=== PATIENT | male | born 1970 | race Caucasian/White ===

== ENCOUNTER 2018-04-18 22:57 | Observation (INO) | payer OTHER ==
--- NOTE | 2018-04-18 23:41 | ED ---
Abdominal Pain HPI - General Chief Complaint: Abdominal Pain Stated Complaint: Abd Pain Time Seen by Provider: 04/18/18 23:03 Source: patient Mode of arrival: ambulatory Limitations: no limitations - History of Present Illness Initial Comments: This patient is a 47-year-old man presenting to be evaluated for abdominal pain. He states that the symptoms came on around 3 AM. He states that initially it was diffuse throughout the abdomen and cramping in nature. States it was similar to previous episode of poisoning so he was not too concerned. He spent the day drinking plenty of fluid to try and flush it out. He states that since that time he has had some sharp stabbing episodes in the right lower quadrant. He states the pain is been moderate intensity. He has noted that the pain is better if he just remains still and is a little bit worse if he moves. No associated symptoms. MD Complaint: abdominal pain Onset/Timin -: hour(s) Location: diffuse Migration to: RLQ Severity: moderate Quality: cramping, stabbing Consistency: colicky Improves With: rest Worsens With: movement Associated Symptoms: nausea - Related Data Home Medications Medication Instructions Recorded Confirmed Levothyroxine Sodium [Synthroid] 100 mcg PO DIRECTED 04/18/18 04/18/18 Nugenix 1 cap PO DAILY 04/18/18 04/18/18 Allergies Allergy/AdvReac Type Severity Reaction Status Date / Time No Known Allergies Allergy Verified 04/18/18 23:20 Review of Systems ROS Statement: Those systems with pertinent positive or pertinent negative responses have been documented in the HPI. ROS Other: All systems not noted in ROS Statement are negative. Constitutional: Denies: fever, chills Respiratory: Denies: cough, dyspnea Cardiovascular: Denies: chest pain, palpitations, edema Gastrointestinal: Reports: abdominal pain. Denies: nausea, vomiting, diarrhea, constipation Genitourinary: Reports: testicular pain. Denies: dysuria, frequency, hematuria , testicular mass Skin: Denies: rash Neurological: Denies: headache, weakness, numbness Past Medical History Past Medical History: Thyroid Disorder History of Any Multi-Drug Resistant Organisms: None Reported Past Surgical History: No Surgical Hx Reported Past Psychological History: No Psychological Hx Reported Smoking Status: Former smoker Past Alcohol Use History: Rare Past Drug Use History: None Reported General Exam Limitations: no limitations General appearance: alert, in no apparent distress Head exam: Present: atraumatic, normocephalic Eye exam: Present: normal appearance. Absent: scleral icterus, conjunctival injection ENT exam: Present: normal oropharynx Neck exam: Present: normal inspection Respiratory exam: Present: normal lung sounds bilaterally. Absent: respiratory distress, wheezes, rales, rhonchi, stridor Cardiovascular Exam: Present: regular rate (Rate 96 at my exam), normal rhythm, normal heart sounds. Absent: systolic murmur, diastolic murmur, rubs, gallop GI/Abdominal exam: Present: soft, tenderness (Right lower quadrant), normal bowel sounds. Absent: distended, guarding, rebound, rigid, mass, pulsatile mass , hernia exam: Present: normal inspection, vertical testicular lie, circumcision. Absent: testicular tenderness, urethral discharge, scrotal swelling Extremities exam: Present: normal inspection, normal capillary refill. Absent: pedal edema, calf tenderness Back exam: Present: normal inspection. Absent: CVA tenderness (R), CVA tenderness (L) Neurological exam: Present: alert, normal gait Skin exam: Present: warm, dry, intact, normal color. Absent: rash Course Vital Signs 04/18/18 04/19/18 23:05 01:06 Temperature 99.0 F Pulse Rate 109 H 90 Respiratory 19 20 Rate Blood Pressure 141/64 138/68 O2 Sat by Pulse 93 L 97 Oximetry Medical Decision Making - Lab Data Result diagrams: 04/18/18 23:31 04/18/18 23:31 Lab Results 04/18/18 04/18/18 04/19/18 Range/Units 23:31 23:31 00:12 WBC 13.4 H (3.8-10.6) k/uL RBC 5.61 (4.30-5.90) m/uL Hgb 15.3 (13.0-17.5) gm/dL Hct 46.4 (39.0-53.0) % MCV 82.7 (80.0-100.0) fL MCH 27.2 (25.0-35.0) pg MCHC 32.9 (31.0-37.0) g/dL RDW 13.6 (11.5-15.5) % Plt Count 220 (150-450) k/uL Neutrophils % 69 % Lymphocytes % 20 % Monocytes % 7 % Eosinophils % 3 % Basophils % 0 % Neutrophils # 9.2 H (1.3-7.7) k/uL Lymphocytes # 2.7 (1.0-4.8) k/uL Monocytes # 1.0 (0-1.0) k/uL Eosinophils # 0.3 (0-0.7) k/uL Basophils # 0.1 (0-0.2) k/uL Sodium 140 (137-145) mmol/L Potassium 4.0 (3.5-5.1) mmol/L Chloride 104 (98-107) mmol/L Carbon Dioxide 27 (22-30) mmol/L Anion Gap 9 mmol/L BUN 15 (9-20) mg/dL Creatinine 0.83 (0.66-1.25) mg/dL Est GFR (CKD-EPI)AfAm >90 (>60 ml/min/1.73 sqM) Est GFR (CKD-EPI)NonAf >90 (>60 ml/min/1.73 sqM) Glucose 129 H (74-99) mg/dL Calcium 9.3 (8.4-10.2) mg/dL Total Bilirubin 1.7 H (0.2-1.3) mg/dL AST 23 (17-59) U/L ALT 38 (21-72) U/L Alkaline Phosphatase 68 (38-126) U/L Total Protein 7.5 (6.3-8.2) g/dL Albumin 4.0 (3.5-5.0) g/dL Amylase 35 (30-110) U/L Lipase 36 (23-300) U/L Urine Color Yellow Urine Appearance Clear (Clear) Urine pH 7.0 (5.0-8.0) Ur Specific [place] 1.022 (1.001-1.035) Urine Protein Trace H (Negative) Urine Glucose (UA) Negative (Negative) Urine Ketones Negative (Negative) Urine Blood Trace H (Negative) Urine Nitrite Negative (Negative) Urine Bilirubin Negative (Negative) Urine Urobilinogen 8.0 (<2.0) mg/dL Ur Leukocyte Esterase Negative (Negative) Urine RBC 2 (0-5) /hpf Urine WBC 1 (0-5) /hpf Ur Squamous Epith Cells <1 (0-4) /hpf Urine Mucus Moderate H (None) /hpf Disposition Clinical Impression: Abdominal pain, Appendicitis, acute Disposition: ADMITTED IP TO THIS HOSP Condition: Good Referrals: Savage Rich MD [Primary Care Provider] - 1-2 days
[2018-04-18 23:47] LABS: Basophils # (A) 0.1 k/uL (0-0.2); Basophils % (A) 0 %; Eosinophils # (A) 0.3 k/uL (0-0.7); Eosinophils % (A) 3 %; HCT 46.4 % (39.0-53.0); HGB 15.3 gm/dL (13.0-17.5); Lymphocytes # (A) 2.7 k/uL (1.0-4.8); Lymphocytes % (A) 20 %; MCH 27.2 pg (25.0-35.0); MCHC 32.9 g/dL (31.0-37.0); MCV 82.7 fL (80.0-100.0); Mean Platelet Volume 7.7; Monocytes % (A) 7 %; Neutrophils # (A) 9.2 k/uL (1.3-7.7); Neutrophils % (A) 69 %; Platelet Count 220 k/uL (150-450); RBC 5.61 m/uL (4.30-5.90); RDW 13.6 % (11.5-15.5); WBC 13.4 k/uL (3.8-10.6)
[2018-04-18 23:57] LABS: ALT 38 U/L (21-72); AST 23 U/L (17-59); Alkaline Phosphatase 68 U/L (38-126); Amylase 35 U/L (30-110); Anion Gap 9 mmol/L; Blood Urea Nitrogen 15 mg/dL (9-20); Calcium 9.3 mg/dL (8.4-10.2); Carbon Dioxide 27 mmol/L (22-30); Chloride 104 mmol/L (98-107); Glucose 129 mg/dL (74-99); Lipase 36 U/L (23-300); Sodium 140 mmol/L (137-145); Total Bilirubin 1.7 mg/dL (0.2-1.3); Total Protein 7.5 g/dL (6.3-8.2)
--- NOTE | 2018-04-19 00:05 | CT ---
EXAMINATION TYPE: CT abdomen pelvis wo con DATE OF EXAM: 04/18/2018 COMPARISON: None HISTORY: RLQ PAIN CT DLP: 2077 mGycm Automated exposure control for dose reduction was used. TECHNIQUE: Helical acquisition of images was performed from the lung bases through the pelvis. FINDINGS: Lung bases are clear. There is no pleural effusion. Heart size is normal. There is no pericardial eff usion. There is diffuse fatty infiltration of the liver. The bile ducts are not dilated. There is no focal l iver defect. Spleen appears normal. There is no pancreatic mass. Gallbladder appears normal. There is no adrenal mass. The kidneys have normal size and contour. There is no hydronephrosis. Urete rs are not dilated. There is no retroperitoneal adenopathy. Bladder distends smoothly. There is no in guinal hernia. There is no free fluid in the pelvis. There is fat stranding in the right lower quadrant. There is thickened appendix with surrounding infl ammatory changes. There is small appendicolith. Appendix measures 1.6 cm in diameter. There is no sujatha e fluid in the pelvis. There is no ascites. There is no mesenteric edema or adenopathy. There is L5 s pondylolysis with minimal first-degree L5-S1 spondylolisthesis. IMPRESSION: THICKENED APPENDIX WITH SURROUNDING INFLAMMATORY CHANGES RELATED TO ACUTE APPENDICITIS. NO ABSCESS. A PPENDICOLITH. L5 SPONDYLOLYSIS WITH L5-S1 MILD SPONDYLOLISTHESIS. FATTY INFILTRATION OF THE LIVER.
[2018-04-19 01:29] LABS: Appearance,Urine Clear (Clear); Bilirubin,Urine Negative (Negative); Blood,Urine Trace (Negative); Color,Urine Yellow; Glucose,Urine (UA) Negative (Negative); Ketones,Urine Negative (Negative); Leukocyte Esterase,Urine Negative (Negative); Mucus,Urine Moderate /hpf; Nitrite,Urine Negative (Negative); Protein,Urine Trace (Negative); RBC,Urine 2 /hpf (0-5); Specific Gravity,Urine 1.022 (1.001-1.035); Squamous Epithelial Cell,Urine <1 /hpf (0-4); WBC,Urine 1 /hpf (0-5)
[2018-04-19] MEDS ORDERED: PIPERACILLIN-TAZOBACTAM 3.375 GM in SODIUM CHLORIDE 0.9% 100 ML IVPB STA (01:29)
[2018-04-19] MEDS ORDERED: NALOXONE 0.4 MG/ML 1 ML VIAL IV PRN (01:35)
[2018-04-19] MEDS ORDERED: LORazepam 2 MG/ML INJ IV PRN (01:35)
[2018-04-19] MEDS ORDERED: MORPHINE SULFATE 4 MG/ML SYRINGE IV PRN (01:35)
[2018-04-19] MEDS ORDERED: ONDANSETRON 4 MG/2 ML VIAL IVP PRN (01:35)
[2018-04-19] MEDS: SODIUM CHLORIDE 0.9% 1,000 ML IV SCH ×5 (01:56→21:26)
[2018-04-19 02:16] VITALS: RESP 18
[2018-04-19 02:28] VITALS: BMI 48.7
[2018-04-19] MEDS: LEVOTHYROXINE 100 MCG TAB PO SCH (05:41)
--- NOTE | 2018-04-19 08:36 | P.GSHP ---
History of Present Illness H&P Date: 04/19/18 Chief Complaint: Right upper quadrant abdominal pain 47-year-old male who presented to the emergency room with a chief complaint of developing right upper quadrant abdominal pain is a nausea sensation. Patient stated he had a similar episode when he had poisoning. He thought that the abdominal pain was contributed to food poisoning tried to drink plenty of water to flush it out. He stated it did not help. He noted that with any movement it caused increased pain in the right upper quadrant. Stated if he just laid still the pain was not as intense. Patient stated he became concerned and came into the emergency room because the pain would not go away. Patient has no significant past surgical history. In the emergency room a computed tomography scan of the abdomen pelvis indicated acute appendicitis no abscess. Subsequently the patient has been admitted to the services of the attending. Currently states the pain medication has been effective for pain control. Currently labs this morning are pending White count on admission 13.4 total bilirubin 1.7 AST and ALT not elevated amylase 35 lipase 36. - Review of Systems Comment: Essentially unremarkable except as mentioned in the present illness Past Medical History Past Medical History: Sleep Apnea/CPAP/BIPAP, Thyroid Disorder History of Any Multi-Drug Resistant Organisms: None Reported Past Surgical History: No Surgical Hx Reported Additional Past Surgical History / Comment(s): umbilical hernia repair as infant Past Anesthesia/Blood Transfusion Reactions: No Reported Reaction Past Psychological History: No Psychological Hx Reported Smoking Status: Former smoker Past Alcohol Use History: Rare Past Drug Use History: None Reported - Past Family History Father Family Medical History: Diabetes Mellitus Medications and Allergies Home Medications Medication Instructions Recorded Confirmed Type Levothyroxine Sodium [Synthroid] 100 mcg PO DAILY 04/18/18 04/19/18 History Nugenix 1 cap PO DAILY 04/18/18 04/18/18 History Allergies Allergy/AdvReac Type Severity Reaction Status Date / Time No Known Allergies Allergy Verified 04/18/18 23:20 Surgical - Exam Vital Signs Temp Pulse Resp BP Pulse Ox 99.0 F 109 H 19 141/64 93 L 04/18/18 23:05 04/18/18 23:05 04/18/18 23:05 04/18/18 23:05 04/18/18 23:05 GENERAL APPEARANCE: 47-year-old male patient is alert, oriented, in no acute distress. States pain medication effective for pain control decrease pain right upper quadrant VITAL SIGNS: Reviewed HEENT: Head is normocephalic and atraumatic. Pupils are equal and reactive. The nares are patent. Oropharynx is clear without lesions. NECK: Supple without lymphadenopathy. Traches midline. HEART: S1, S2. Regular rate and rhythm. Denying chest pain LUNGS: No crackles or wheezes are heard. Adequate air movement ABDOMEN: Soft, positive tenderness to the right lower quadrant nondistended with good bowel sounds. No peritoneal signs. No palpable organomegaly or masses. EXTREMITIES: Normal skin color and turgor. No cyanosis, rash, ulceration, clubbing or edema. Radial pedal pulses are 2/4 bilaterally. NEUROLOGICAL: No focal deficits. Strength and sensation are grossly intact. Results - Labs 04/18/18 23:31 04/18/18 23:31 Abnormal Lab Results - Last 24 Hours (Table) 04/18/18 04/18/18 1218 Range/Units 23:31 23:31 00:12 WBC 13.4 H (3.8-10.6) k/uL Neutrophils # 9.2 H (1.3-7.7) k/uL Glucose 129 H (74-99) mg/dL Total Bilirubin 1.7 H (0.2-1.3) mg/dL Urine Protein Trace H (Negative) Urine Blood Trace H (Negative) Urine Mucus Moderate H (None) /hpf Diabetes panel 04/18/18 Range/Units 23:31 Sodium 140 (137-145) mmol/L Potassium 4.0 (3.5-5.1) mmol/L Chloride 104 (98-107) mmol/L Carbon Dioxide 27 (22-30) mmol/L BUN 15 (9-20) mg/dL Creatinine 0.83 (0.66-1.25) mg/dL Glucose 129 H (74-99) mg/dL Calcium 9.3 (8.4-10.2) mg/dL AST 23 (17-59) U/L ALT 38 (21-72) U/L Alkaline Phosphatase 68 (38-126) U/L Total Protein 7.5 (6.3-8.2) g/dL Albumin 4.0 (3.5-5.0) g/dL Calcium panel 04/18/18 Range/Units 23:31 Calcium 9.3 (8.4-10.2) mg/dL Albumin 4.0 (3.5-5.0) g/dL Pituitary panel 04/18/18 Range/Units 23:31 Sodium 140 (137-145) mmol/L Potassium 4.0 (3.5-5.1) mmol/L Chloride 104 (98-107) mmol/L Carbon Dioxide 27 (22-30) mmol/L BUN 15 (9-20) mg/dL Creatinine 0.83 (0.66-1.25) mg/dL Glucose 129 H (74-99) mg/dL Calcium 9.3 (8.4-10.2) mg/dL Adrenal panel 04/18/18 Range/Units 23:31 Sodium 140 (137-145) mmol/L Potassium 4.0 (3.5-5.1) mmol/L Chloride 104 (98-107) mmol/L Carbon Dioxide 27 (22-30) mmol/L BUN 15 (9-20) mg/dL Creatinine 0.83 (0.66-1.25) mg/dL Glucose 129 H (74-99) mg/dL Calcium 9.3 (8.4-10.2) mg/dL Total Bilirubin 1.7 H (0.2-1.3) mg/dL AST 23 (17-59) U/L ALT 38 (21-72) U/L Alkaline Phosphatase 68 (38-126) U/L Total Protein 7.5 (6.3-8.2) g/dL Albumin 4.0 (3.5-5.0) g/dL Assessment and Plan Assessment: Impression Present on admission right lower quadrant abdominal pain with a nausea sensation suspect due to acute appendicitis Present on admission leukocytosis suspect due to acute appendicitis CAT scan of the abdomen pelvis suggestive of acute appendicitis History of hypothyroid on supplement Morbid obesity BMI 48 Plan Keep nothing by mouth scheduled for a lap cholecystectomy today by Dr. Fox pain control IV Zosyn as ordered IV fluid for hydration DVT and GI prophylaxis Further recommendations pending The above impression and plan of care have been discussed and directed by signing physician. Skyla Celeste nurse practitioner acting as scribe for signing physician.
[2018-04-19] MEDS: PANTOPRAZOLE 40 MG/10 ML VIAL IVP SCH (09:01)
[2018-04-19] MEDS: HEPARIN SODIUM,PORCINE 5,000 UNIT/ML 1 ML VIAL SQ SCH ×3 (09:01→23:12)
[2018-04-19] MEDS: PIPERACILLIN-TAZOBACTAM 3.375 GM in SODIUM CHLORIDE 0.9% 100 ML IVPB SCH ×2 (11:24→17:09)
--- NOTE | 2018-04-19 12:56 | P.HPADDEND ---
H&P Addendum H&P Addendum Date: 04/19/18 emphysematous of surgery described. We'll proceed with robotic appendectomy given patient's body habitus and BMI almost 50
[2018-04-19] MEDS ORDERED: SUCCINYLCHOLINE CHLORIDE 100 MG/5 ML SYR IV ONE (18:46)
[2018-04-19] MEDS ORDERED: MIDAZOLAM 2 MG/2 ML VIAL ONE (18:46)
[2018-04-19] MEDS ORDERED: IV FLUID CONTINUATION 100 ML IV ONE (18:46)
[2018-04-19] MEDS ORDERED: PROPOFOL 10 MG/ML 20 ML VIAL IV ONE (18:46)
[2018-04-19] MEDS ORDERED: NEOSTIGMINE 1 MG/ML 10 ML VIAL ONE (18:46)
[2018-04-19] MEDS ORDERED: ROCURONIUM BROMIDE 10 MG/ML 10 ML VIAL IV ONE (18:46)
[2018-04-19] MEDS ORDERED: LIDOCAINE 1% INJ 10MG/ML (20 ML MDV) ONE (18:46)
[2018-04-19] MEDS ORDERED: fentaNYL (PF) 50 MCG/ML 2 ML AMP ONE (18:46)
[2018-04-19] MEDS ORDERED: GLYCOPYRROLATE 0.2 MG/ML 2 ML VIAL ONE (18:46)
[2018-04-19] MEDS ORDERED: KETOROLAC 30 MG/ML 1 ML VIAL ONE (18:46)
[2018-04-19] MEDS ORDERED: BUPIVACAIN-EPI 0.5%-1:200,000 30 ML VIAL SQ ONE (19:44)
[2018-04-19] MEDS ORDERED: LACTATED RINGERS 1,000 ML IV ONE (20:01)
[2018-04-19] MEDS ORDERED: METOCLOPRAMIDE 5 MG/ML 2 ML VIAL IVP PRN (20:55)
--- NOTE | 2018-04-19 20:55 | P.OP ---
Date of Procedure: 04/19/18 Preoperative Diagnosis: Acute appendicitis, morbid obesity, BMI 48.8 Postoperative Diagnosis: Retrocecal appendicitis with periappendicitis without rupture Procedure(s) Performed: Robotic appendectomy Anesthesia: GETA, local Surgeon: Elenita Fox Estimated Blood Loss (ml): 50 Pathology: other (Appendix) Condition: stable Disposition: floor Operative Findings: Retrocecal appendicitis with periappendicitis adding moderate complexity to the case including body habitus BMI 48.8
[2018-04-20] MEDS: PIPERACILLIN-TAZOBACTAM 3.375 GM in SODIUM CHLORIDE 0.9% 100 ML IVPB SCH ×2 (01:52→09:42)
[2018-04-20] MEDS: SODIUM CHLORIDE 0.9% 1,000 ML IV SCH (05:20)
[2018-04-20] MEDS: HYDROcodone/APAP 5-325MG 1 EACH TAB PO PRN ×2 (05:27→11:53)
[2018-04-20] MEDS: LEVOTHYROXINE 100 MCG TAB PO SCH (05:27)
[2018-04-20 08:09] VITALS: BP 118/77; PULSE 87; TEMP 98.4
[2018-04-20 08:37] LABS: Basophils # (A) 0.1 k/uL (0-0.2); Basophils % (A) 1 %; Eosinophils # (A) 0.2 k/uL (0-0.7); Eosinophils % (A) 2 %; HCT 44.1 % (39.0-53.0); HGB 13.6 gm/dL (13.0-17.5); Lymphocytes # (A) 2.3 k/uL (1.0-4.8); Lymphocytes % (A) 24 %; MCH 26.6 pg (25.0-35.0); MCHC 30.9 g/dL (31.0-37.0); MCV 86.2 fL (80.0-100.0); Mean Platelet Volume 7.6; Monocytes # (A) 0.6 k/uL (0-1.0); Monocytes % (A) 7 %; Neutrophils # (A) 6.4 k/uL (1.3-7.7); Neutrophils % (A) 66 %; Platelet Count 220 k/uL (150-450); RBC 5.11 m/uL (4.30-5.90); RDW 13.8 % (11.5-15.5); WBC 9.7 k/uL (3.8-10.6)
[2018-04-20] MEDS: HEPARIN SODIUM,PORCINE 5,000 UNIT/ML 1 ML VIAL SQ SCH (09:44)
[2018-04-20] MEDS: PANTOPRAZOLE 40 MG/10 ML VIAL IVP SCH (09:45)
--- NOTE | 2018-04-20 09:53 | P.DS ---
Providers Date of admission: 04/19/18 01:35 Expected date of discharge: 04/20/18 Attending physician: Elenita Fox [facility] Course: 47-year-old male presented to the emergency room with a chief complaint of developing right upper quadrant abdominal pain with a nausea sensation. Patient states he noted that with movement there was increased pain involving the right upper quadrant. Came into the emergency room to be evaluated for the above-mentioned symptoms. CAT scan of the abdomen pelvis indicated acute appendicitis no abscess. Liver enzymes were normal. White count on admission 13.4. On April 19 the patient underwent robotic appendectomy for retrocecal appendicitis with periappendicitis without rupture. The day of discharge patient was up ambulatory in the room. Abdomen soft surgical tenderness appropriate in surgical dressings dry tolerating a diet no stool afebrile white count down to 9.7. Patient was felt to be appropriate to be discharged home. Impression discharge diagnosis Present on admission right upper quadrant abdominal pain suspect due to acute appendicitis CAT scan of the abdomen pelvis indicated acute appendicitis Postop April 19 robotic appendectomy for acute appendicitis Retrocecal appendicitis with periappendicitis without rupture Morbid obesity BMI 48.8 The above impression and plan of care have been discussed and directed by signing physician. Skyla Celeste nurse practitioner acting as scribe for signing physician. Patient Condition at Discharge: Good Plan - Discharge Summary New Discharge Prescriptions: New Amoxic-Pot Clav 875-125Mg [Augmentin 875-125] 1 tab PO Q12HR #20 tablet HYDROcodone/APAP 5-325MG [[place] 5-325] 1 tab PO Q6HR PRN 3 Days #12 tab PRN Reason: Mild Pain No Action Nugenix 1 cap PO DAILY Levothyroxine Sodium [Synthroid] 100 mcg PO DAILY Discharge Medication List Levothyroxine Sodium [Synthroid] 100 mcg PO DAILY 04/18/18 [History] Nugenix 1 cap PO DAILY 04/18/18 [History] Amoxic-Pot Clav 875-125Mg [Augmentin 875-125] 1 tab PO Q12HR #20 tablet [Rx] HYDROcodone/APAP 5-325MG [[place] 5-325] 1 tab PO Q6HR PRN 3 Days #12 tab [Rx] Follow up Appointment(s)/Referral(s): Savage Rich MD [Primary Care Provider] - 1-2 days Elenita Fox MD [STAFF PHYSICIAN] - 04/23/18 Activity/Diet/Wound Care/Special Instructions: No tub bath for six weeks. Shower daily. No soaking No lifting over 10 pounds for the next 2 weeks. . Do not remove surgical dressings will be evaluated in the outpatient setting May return to work after seen in outpatient postop visit May use ice packs to surgical site. No driving while taking narcotic for pain. [id number]-[id number] stool softeners as needed when necessary first constipation Discharge Disposition: HOME SELF-CARE
== END 2018-04-20 14:03 | disposition home or self-care (01) ==
LOC: EC 22:57 → 1SOBS 04-19 01:35
PROVIDERS: ADMIT Surgery Plastic and Reconstructive Surgery; ATTEND Surgery Plastic and Reconstructive Surgery
DX: K35.30 Acute appendicitis with localized peritonitis, without perforation or gangrene (principal); E03.9 Hypothyroidism, unspecified; G47.30 Sleep apnea, unspecified; Z99.89 Dependence on other enabling machines and devices; E66.01 Morbid (severe) obesity due to excess calories; Z68.42 Body mass index [BMI] 45.0-49.9, adult; Z79.890 Hormone replacement therapy; Z87.891 Personal history of nicotine dependence; Z83.3 Family history of diabetes mellitus
CPT/HCPCS: 44970; S2900; 36415; 74176; 80053; 81001; 82150; 83690; 85025; 88304; 96365; 96366; 99285

== ENCOUNTER 2020-08-17 10:49 | Inpatient (IN) | payer OTHER ==
--- NOTE | 2020-08-17 11:41 | XR ---
EXAMINATION TYPE: XR chest 2V DATE OF EXAM: 08/17/2020 COMPARISON: NONE HISTORY: Shortness of breath TECHNIQUE: Frontal and lateral views of the chest are obtained. FINDINGS: Scattered airspace infiltrates are seen bilaterally. Correlate for Covid 19 pneumonia. No evidence for pneumothorax. No pleural effusion. The cardiac silhouette size is within normal limits. The osseous structures are grossly intact. IMPRESSION: 1. Scattered airspace infiltrates are seen bilaterally. Correlate for Covid 19 pneumonia.
--- NOTE | 2020-08-17 13:39 | ED ---
SOB HPI - General Chief Complaint: Shortness of Breath Stated Complaint: Covid+, bodyaches, SOB Time Seen by Provider: 08/17/20 13:30 Source: patient Mode of arrival: ambulatory Limitations: no limitations - History of Present Illness Initial Comments: 50-year-old male presenting to the emergency department with a chief complaint shortness of breath. Patient was diagnosed with Covid 5 days ago. States he has developed increase in symptoms. He reports increased shortness of breath but denies any chest pain. Does report chills at home but never actually obtained a temperature to measure for fever. He does report decreased appetite and oral intake. Denies any nausea vomiting or diarrhea. Also reports generalized myalgias and fatigue. Reports a nonproductive cough but denies any hemoptysis. - Related Data Home Medications Medication Instructions Recorded Confirmed Levothyroxine Sodium [Synthroid] 100 mcg PO DAILY 04/18/18 08/17/20 D-Methorphan/PE/Acetaminophen 2 cap PO Q12H PRN 08/17/20 08/17/20 [Vicks Dayquil Liquicaps] Dm/Acetaminophen/Doxylamine [Vicks 2 cap PO Q12H PRN 08/17/20 08/17/20 Nyquil Liquicaps] Furosemide [Lasix] 20 mg PO DAILY 08/17/20 08/17/20 Potassium Chloride ER [K-Dur 20] 20 meq PO DAILY 08/17/20 08/17/20 Allergies Allergy/AdvReac Type Severity Reaction Status Date / Time No Known Allergies Allergy Verified 08/17/20 14:32 Review of Systems ROS Statement: Those systems with pertinent positive or pertinent negative responses have been documented in the HPI. ROS Other: All systems not noted in ROS Statement are negative. Past Medical History Past Medical History: Sleep Apnea/CPAP/BIPAP, Thyroid Disorder History of Any Multi-Drug Resistant Organisms: None Reported Past Surgical History: Hernia Repair Additional Past Surgical History / Comment(s): umbilical hernia repair as Past Anesthesia/Blood Transfusion Reactions: No Reported Reaction Past Psychological History: No Psychological Hx Reported Smoking Status: Never smoker Past Alcohol Use History: Rare Past Drug Use History: None Reported - Past Family History Father Family Medical History: Diabetes Mellitus General Exam Limitations: no limitations General appearance: alert, in no apparent distress, obese Head exam: Present: atraumatic, normocephalic, normal inspection Eye exam: Present: normal appearance, PERRL, EOMI Pupils: Present: normal accommodation ENT exam: Present: normal exam, normal oropharynx, mucous membranes moist Neck exam: Present: normal inspection, full ROM. Absent: tenderness Respiratory exam: Present: normal lung sounds bilaterally. Absent: respiratory distress Cardiovascular Exam: Present: regular rate, normal rhythm, normal heart sounds GI/Abdominal exam: Present: soft. Absent: distended, tenderness, guarding, rebound Extremities exam: Present: normal inspection, normal capillary refill. Absent: full ROM, tenderness, pedal edema, joint swelling Back exam: Present: normal inspection, full ROM. Absent: tenderness, CVA tenderness (R), CVA tenderness (L) Neurological exam: Present: alert, oriented X3, normal gait Psychiatric exam: Present: normal affect, normal mood Skin exam: Present: warm, dry, intact, normal color Course Vital Signs 08/17/20 08/17/20 08/17/20 10:50 13:45 13:47 Temperature 98.7 F Pulse Rate 94 Respiratory 18 Rate Blood Pressure 129/75 O2 Sat by Pulse 90 L 81 L 97 Oximetry Medical Decision Making - Medical Decision Making 50-year-old male presents to the emergency department with chief complaint of shortness of breath. On physical examination, patient does not appear to be significant respiratory distress, however he is hypoxic with oxygenation of 81% on room air. Patient was started on 4 L nasal cannula. X-ray suggesting covert pneumonia. Patient will be started 6 mg of Decadron. Laboratory work pending. Patient does not qualify for monoclonal antibody. I spoke to Dr. Koch who will admit for further medical management. Case discussed with Pulmonary consult - Lab Data Result diagrams: 08/17/20 13:57 Lab Results 08/17/20 08/17/20 08/17/20 Range/Units 13:57 13:57 13:57 WBC 5.6 (3.8-10.6) k/uL RBC 5.69 (4.30-5.90) m/uL Hgb 15.8 (13.0-17.5) gm/dL Hct 46.2 (39.0-53.0) % MCV 81.3 (80.0-100.0) fL MCH 27.7 (25.0-35.0) pg MCHC 34.1 (31.0-37.0) g/dL RDW 13.9 (11.5-15.5) % Plt Count 172 (150-450) k/uL MPV 8.3 Neutrophils % 68 % Lymphocytes % 21 % Monocytes % 8 % Eosinophils % 1 % Basophils % 1 % Neutrophils # 3.8 (1.3-7.7) k/uL Lymphocytes # 1.2 (1.0-4.8) k/uL Monocytes # 0.4 (0-1.0) k/uL Eosinophils # 0.0 (0-0.7) k/uL Basophils # 0.1 (0-0.2) k/uL PT 10.8 (9.0-12.0) sec INR 1.0 (<1.2) APTT 25.6 (22.0-30.0) sec D-Dimer 0.82 H (<0.60) mg/L FEU Plasma Lactic Acid Chris 1.2 (0.7-2.0) mmol/L Disposition Clinical Impression: Pneumonia due to COVID-19 virus Disposition: ADMITTED IP TO THIS HOSP Condition: Good Is patient prescribed a controlled substance at d/c from ED?: No Referrals: Savage Rich MD [Primary Care Provider] - 1-2 days Time of Disposition: 13:48
[2020-08-17] MEDS ORDERED: dexAMETHasone 2 MG TAB PO STA (13:48)
[2020-08-17 14:18] LABS: Basophils # (A) 0.1 k/uL (0-0.2); Basophils % (A) 1 %; Eosinophils % (A) 1 %; HCT 46.2 % (39.0-53.0); HGB 15.8 gm/dL (13.0-17.5); Lymphocytes # (A) 1.2 k/uL (1.0-4.8); Lymphocytes % (A) 21 %; MCH 27.7 pg (25.0-35.0); MCHC 34.1 g/dL (31.0-37.0); MCV 81.3 fL (80.0-100.0); Mean Platelet Volume 8.3; Monocytes # (A) 0.4 k/uL (0-1.0); Monocytes % (A) 8 %; Neutrophils # (A) 3.8 k/uL (1.3-7.7); Neutrophils % (A) 68 %; Platelet Count 172 k/uL (150-450); RBC 5.69 m/uL (4.30-5.90); RDW 13.9 % (11.5-15.5); WBC 5.6 k/uL (3.8-10.6)
[2020-08-17 14:31] LABS: Partial Thromboplastin Time 25.6 sec (22.0-30.0); Prothrombin Time 10.8 sec (9.0-12.0)
[2020-08-17 14:34] LABS: D-Dimer 0.82 mg/L FEU (<0.60)
[2020-08-17 14:38] LABS: ALT 38 U/L (4-49); AST 65 U/L (17-59); African American GFR (CKD) >90 (>60 ml/min/1.73 sqM); Albumin 3.7 g/dL (3.5-5.0); Alkaline Phosphatase 72 U/L (38-126); Anion Gap 7 mmol/L; Blood Urea Nitrogen 10 mg/dL (9-20); Calcium 8.1 mg/dL (8.4-10.2); Carbon Dioxide 33 mmol/L (22-30); Chloride 95 mmol/L (98-107); Glucose 100 mg/dL (74-99); LDH 1125 U/L (313-618); Magnesium 1.9 mg/dL (1.6-2.3); Non-African American GFR(CKD) >90 (>60 ml/min/1.73 sqM); Potassium 3.8 mmol/L (3.5-5.1); Sodium 135 mmol/L (137-145); Total Bilirubin 1.1 mg/dL (0.2-1.3); Total Protein 7.1 g/dL (6.3-8.2)
[2020-08-17 14:49] LABS: C Reactive Protein 187.9 mg/L (<10.0)
--- NOTE | 2020-08-17 15:21 | CT ---
EXAMINATION TYPE: CT chest angio for PE DATE OF EXAM: 08/17/2020 COMPARISON: HISTORY: Shortness of breath and cough for [address] DLP: 1407.2 mGycm CONTRAST: CT chest with contrast and 3D reconstruction with MIP imaging is performed with IV Contrast, patient injected with 100 mL of Isovue 370. Contrast-enhanced CT of the chest was performed through the course of the pulmonary arteries with adebayo g and mediastinal window settings submitted. 3D reconstruction with MIP imaging was also performed. PULMONARY ARTERIES: The pulmonary arteries and their major tributaries are patent. I do not see veena dence for sizable filling defect to suggest pulmonary embolic process. LUNGS: Bilateral airspace and groundglass infiltrates seen throughout both lung daly. No evidence f or atelectasis. No pulmonary nodule or mass is detected. No pleural effusion. MEDIASTINUM: Thoracic aorta is of normal caliber,however, evaluation is limited given timing of the contrast bolus. If there is concern for thoracic aortic pathology consider NOBLE. Correlate clinicall y . The heart is not enlarged. No evidence for mediastinal mass. No mediastinal lymph nodes greater than 1cm. HILAR STRUCTURES: No evidence for mass. No hilar lymph nodes greater than 1 cm. UPPER ABDOMEN: No significant abnormality is seen. IMPRESSION: 1. No evidence for Pulmonary embolism at this time. 2.Bilateral airspace and groundglass infiltrates seen throughout both lung daly.
[2020-08-17] MEDS ORDERED: ACETAMINOPHEN TAB 325 MG TAB PO STA (16:12)
[2020-08-17] MEDS ORDERED: NALOXONE 0.4 MG/ML 1 ML VIAL IV PRN (16:24)
[2020-08-17] MEDS ORDERED: ACETAMINOPHEN TAB 325 MG TAB PO PRN (16:24)
[2020-08-17] MEDS ORDERED: LORazepam 2 MG/ML INJ IV PRN (16:24)
[2020-08-17] MEDS: SODIUM CHLORIDE 0.9% 1,000 ML IV SCH (16:30)
[2020-08-17] MEDS: ENOXAPARIN 40 MG/0.4 ML SYRINGE SQ SCH (21:02)
--- NOTE | 2020-08-17 21:21 | P.HPIM ---
History of Present Illness H&P Date: 08/17/20 Chief Complaint: Short of breath History of presenting complaint: This is a pleasant 50-year-old patient of Dr. Rich. Chronic stable medical conditions include hypothyroid, chronic lower extremity edema, morbid obesity, obstructive sleep apnea. He does not use a CPAP. Patient tested positive for COVID 1970s ago. 9 days prior to that patient having symptoms that included body ache, fever, chills, headache altered sense of smell. Base was present. Patient has been short of breath. Getting slightly worse. Patient's cough became worse. Appetite had gone down. Decided to come in. Pulse ox in the ER dropped down to 81%. 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 Physical examination: VITAL SIGNS: 98.7, 94, 26, 129 with 75, 81% on room air GENERAL: BMI 52.8, sitting at the edge of the bed, short of breath. EYES: Pupils equal. Conjunctiva normal. HEENT: External appearance of nose and ears normal, oral cavity grossly normal. NECK: JVD not raised; masses not palpable. HEART: First and second heart sounds are normal; mild edema. LUNGS: Respiratory rate increased, diminished breath sounds some crackles, not able to speak in full sentences. ABDOMEN: Soft, nontender, liver spleen not palpable, no masses palpable. PSYCH: Alert and oriented x3; mood and affect slightly anxiousl. NEUROLOGICAL: Cranial nerves grossly intact; no facial asymmetry, power and sensation grossly intact. LYMPHATICS: No lymph nodes palpable in the axilla and neck INVESTIGATIONS, reviewed in the clinical context: WBC 5.6 hemoglobin 15.8 platelets 172 d-dimer 0.82 potassium 3.8 creatinine 0.69 AST 65 ALT [address] chest angiogram for PE: Negative for PE. Bilateral groundglass infiltrates Chest x-ray film personally reviewed by me-bilateral infiltrates Assessment and plan: -Bilateral COVID 19 pneumonia/pneumonitis. Severe Patient started on IV Decadron, subcu Lovenox. Vitamin C, vitamin D, Pepcid, zinc. Pulmonary and ID consulted -Morbid obesity. Weight loss measures as well as outpatient follow-up with PCP -Acute severe hypoxic respiratory failure secondary to COVID 19 Supplement oxygen. Follow pulse ox -Hypothyroid Continue with Synthroid Pulmonary and ID consulted. Follow d-dimer and CRP. Care was discussed with the patient. Given the complexity and severity of patient's condition expect the patient to be in the hospital at least for 2 overnights Past Medical History Past Medical History: Sleep Apnea/CPAP/BIPAP, Thyroid Disorder History of Any Multi-Drug Resistant Organisms: None Reported Past Surgical History: Hernia Repair Additional Past Surgical History / Comment(s): umbilical hernia repair as Past Anesthesia/Blood Transfusion Reactions: No Reported Reaction Past Psychological History: No Psychological Hx Reported Smoking Status: Never smoker Past Alcohol Use History: Rare Past Drug Use History: None Reported - Past Family History Father Family Medical History: Diabetes Mellitus Medications and Allergies Home Medications Medication Instructions Recorded Confirmed Type Levothyroxine Sodium [Synthroid] 100 mcg PO DAILY 04/18/18 08/17/20 History D-Methorphan/PE/Acetaminophen 2 cap PO Q12H PRN 08/17/20 08/17/20 History [Vicks Dayquil Liquicaps] Dm/Acetaminophen/Doxylamine [Vicks 2 cap PO Q12H PRN 08/17/20 08/17/20 History Nyquil Liquicaps] Furosemide [Lasix] 20 mg PO DAILY 08/17/20 08/17/20 History Potassium Chloride ER [K-Dur 20] 20 meq PO DAILY 08/17/20 08/17/20 History Allergies Allergy/AdvReac Type Severity Reaction Status Date / Time No Known Allergies Allergy Verified 08/17/20 14:32 Physical Exam Vitals: Vital Signs Temp Pulse Resp BP Pulse Ox 08/17/20 18:42 99.9 F H 96 28 H 126/69 90 L 08/17/20 17:00 98 30 H 138/94 90 L 08/17/20 16:11 101.5 F H 96 24 130/87 94 L 08/17/20 15:00 104 H 26 H 138/94 92 L 08/17/20 14:00 89 29 H 134/90 97 08/17/20 13:47 97 08/17/20 13:45 81 L 08/17/20 10:50 98.7 F 94 18 129/75 90 L Intake and Output 08/17/20 08/17/20 08/17/20 06:59 14:59 22:59 Other: Weight 181.437 kg 181.437 kg Results CBC & Chem 7: 08/17/20 13:57 08/17/20 13:57 Labs: Abnormal Lab Results - Last 24 Hours (Table) 08/17/20 08/17/20 Range/Units 13:57 13:57 D-Dimer 0.82 H (<0.60) mg/L FEU Sodium 135 L (137-145) mmol/L Chloride 95 L (98-107) mmol/L Carbon Dioxide 33 H (22-30) mmol/L Glucose 100 H (74-99) mg/dL Calcium 8.1 L (8.4-10.2) mg/dL AST 65 H (17-59) U/L Lactate Dehydrogenase 1125 H (313-618) U/L C-Reactive Protein 187.9 H (<10.0) mg/L Thrombosis Risk Factor Assmnt - Choose All That Apply Any of the Below Risk Factors Present?: Yes Each Factor Represents 1 point: Age 41-60 years, Medical pt on bed rest Other Risk Factors: No Other congenital or acquired thrombophilia - If yes, enter type in comment: No Thrombosis Risk Factor Assessment Total Risk Factor Score: 2 Thrombosis Risk Factor Assessment Level: Low Risk
[2020-08-17] MEDS: FAMOTIDINE 20 MG TAB PO SCH (21:43)
[2020-08-17] MEDS: ZINC SULFATE 220 MG CAP PO SCH (21:43)
[2020-08-17] MEDS: ASCORBIC ACID 500 MG TAB PO SCH (21:43)
[2020-08-17] MEDS: CHOLECALCIFEROL 25 MCG (1000 IU) TABLET PO SCH (21:43)
[2020-08-18 00:09] LABS: Ferritin 571.7 ng/mL (22.0-322.0)
[2020-08-18] MEDS: LEVOTHYROXINE 100 MCG TAB PO SCH (05:32)
[2020-08-18] MEDS: SODIUM CHLORIDE 0.9% 1,000 ML IV SCH ×2 (05:32→19:24)
[2020-08-18] MEDS: DEXAMETHASONE SOD PHOSPHATE 10 MG/ML 1 ML VIAL IV SCH (07:55)
[2020-08-18] MEDS: ZINC SULFATE 220 MG CAP PO SCH (07:55)
[2020-08-18] MEDS: FAMOTIDINE 20 MG TAB PO SCH ×2 (07:55→19:24)
[2020-08-18] MEDS: CHOLECALCIFEROL 25 MCG (1000 IU) TABLET PO SCH (07:55)
[2020-08-18] MEDS: ASCORBIC ACID 500 MG TAB PO SCH (07:55)
[2020-08-18] MEDS: ENOXAPARIN 40 MG/0.4 ML SYRINGE SQ SCH (07:56)
--- NOTE | 2020-08-18 14:48 | P.CNPUL ---
History of Present Illness Consult date: 08/18/20 Requesting physician: Eusebio Koch Reason for consult: pneumonia Chief complaint: Cough, shortness of breath, headache. Aches and pains History of present illness: This is a 50-year-old white male with history of hypothyroidism, morbid obesity, obstructive sleep apnea syndrome, patient was admitted through the emergency room yesterday with 10 days' history of multiple constitutional symptoms including nonproductive cough, shortness of breath on exertion, vague aches and pains, intermittent headaches, intermittent episodes of fever and chills with night sweats. Patient was evaluated by his primary care physician a few days ago, and he was made aware a day later that his CoVID test came back positive, and advised to go to the ER if his condition gets any worse. Indeed his symptoms have been progressively getting worse, patient was seen in the ER yesterday, chest x-ray and CT of the chest showed bilateral airspace and groundglass infiltrates throughout both lungs. No evidence of pulmonary embolism. Patient was admitted, he is outside the window for REM, started on the Covid 19 cocktails. Patient tells me that he is feeling better today, feels a bit stronger, less weak, and less short of breath. His CBC showed normal WBC count. Normal platelets. His d-dimer was a bit elevated at 0.8 to electrolytes were noted to be normal. LDH 1125 C-reactive protein 187. Pro-calcitonin 0.13, not clinically significant. Patient is now on 6 L nasal cannula, and his O2 saturation is 90%. Sating at a bedside chair, comfortable, in no distress, extremely pleasant. Review of Systems GEN.: Weakness and fatigue with intermittent fevers and night sweats. EYES: Negative HEENT: Negative NECK: None RESPIRATORY: Cough and shortness of breath. CARDIOVASCULAR: Negative GASTROINTESTINAL: Neck Musculoskeletal: Negative except for aches and painsg HEMATOLOGICAL: No clotting bleeding or bruising PSYCHIATRY: No symptoms of active depression NEUROLOGICAL: Mostly intermittent headaches. Skin: No rashes. Endocrine: Negative. Past Medical History Past Medical History: Sleep Apnea/CPAP/BIPAP, Thyroid Disorder History of Any Multi-Drug Resistant Organisms: None Reported Past Surgical History: Hernia Repair Additional Past Surgical History / Comment(s): umbilical hernia repair as Past Anesthesia/Blood Transfusion Reactions: No Reported Reaction Past Psychological History: No Psychological Hx Reported Smoking Status: Never smoker Past Alcohol Use History: Rare Past Drug Use History: None Reported - Past Family History Father Family Medical History: Diabetes Mellitus Medications and Allergies Home Medications Medication Instructions Recorded Confirmed Type Levothyroxine Sodium [Synthroid] 100 mcg PO DAILY 04/18/18 08/17/20 History D-Methorphan/PE/Acetaminophen 2 cap PO Q12H PRN 08/17/20 08/17/20 History [Vicks Dayquil Liquicaps] Dm/Acetaminophen/Doxylamine [Vicks 2 cap PO Q12H PRN 08/17/20 08/17/20 History Nyquil Liquicaps] Furosemide [Lasix] 20 mg PO DAILY 08/17/20 08/17/20 History Potassium Chloride ER [K-Dur 20] 20 meq PO DAILY 08/17/20 08/17/20 History Allergies Allergy/AdvReac Type Severity Reaction Status Date / Time No Known Allergies Allergy Verified 08/17/20 14:32 Physical Exam Vitals: Vital Signs Temp Pulse Pulse Resp BP BP Pulse Ox 08/18/20 10:00 97.2 F L 82 20 132/78 90 L 08/18/20 07:45 74 16 08/18/20 05:24 97.6 F 74 16 121/76 90 L 08/18/20 02:00 97.7 F 79 17 128/82 92 L 08/17/20 22:21 98.0 F 87 20 134/77 90 L 08/17/20 20:00 98.6 F 88 16 130/76 92 L 08/17/20 18:42 99.9 F H 96 28 H 126/69 90 L 08/17/20 17:00 98 30 H 138/94 90 L 08/17/20 16:11 101.5 F H 96 24 130/87 94 L 08/17/20 15:00 104 H 26 H 138/94 92 L Intake and Output 08/17/20 08/18/20 08/18/20 22:59 06:59 14:59 Other: # Voids 1 Weight 181.437 kg Physical Exam: Revealed 50-year-old white male, obese, pleasant, in no distress, on 6 L nasal cannula. Head: Atraumatic, normocephalic. HEENT:[Neck is supple.] [No neck masses.] [No thyromegaly.] [No JVD.] Chest: [Symmetrical chest expansion, crackles at the bases bilaterally. Cardiac Exam: [Normal S1 and S2, no S3 gallop, no murmur.] Abdomen: [Soft, nontender, no megaly, no rebound, no guarding, normal bowel sounds.] Extremities: [No clubbing, no edema, no cyanosis.] Neurological Exam: [No focal neurologic deficit.] Alert and oriented 3. Psychiatric: Normal mood affect and normal mental status examination. Skin: No rashes. Results - Laboratory Findings CBC and BMP: 08/17/20 13:57 08/17/20 13:57 PT/INR, D-dimer PT 10.8 sec (9.0-12.0) 08/17/20 13:57 INR 1.0 (<1.2) 08/17/20 13:57 D-Dimer 0.94 mg/L FEU (<0.60) H 08/18/20 07:15 Abnormal lab findings: Abnormal Labs 08/17/20 08/17/20 08/17/20 13:57 13:57 13:57 D-Dimer 0.82 H Sodium 135 L Chloride 95 L Carbon Dioxide 33 H Glucose 100 H Calcium 8.1 L Ferritin 571.7 H AST 65 H Lactate Dehydrogenase 1125 H C-Reactive Protein 187.9 H Procalcitonin 0.13 H 08/18/20 08/18/20 07:15 07:15 D-Dimer 0.94 H Sodium Chloride Carbon Dioxide Glucose Calcium Ferritin AST Lactate Dehydrogenase C-Reactive Protein 178.2 H Procalcitonin - Diagnostic Findings Chest x-ray: image reviewed CT scan - chest: image reviewed (As noted in HPI, the findings are consistent with acute COVID 19 pneumonia) Assessment and Plan Assessment: Impression: Acute hypoxic respiratory failure secondary to acute coVID 19 pneumonia Morbid obesity. Obstructive sleep apnea syndrome. History of hypothyroidism. Recommendation: Continue present supportive care measures. Continue oxygen and titrate accordingly Continue IV Decadron. Continue subcu Lovenox. Continue vitamins D C and zinc Continue Pepcid Add baby aspirin Resume home meds Patient is out of the window for REM. If condition gets worse, could consider TOCI and convalescent plasma. We'll continue to follow Time with Patient: Greater than 30
[2020-08-18] MEDS: ASPIRIN 81 MG PO SCH (16:43)
--- NOTE | 2020-08-18 23:46 | P.PN ---
Progress Note - Text Progress Note Date: 08/18/20 Chief Complaint: Short of breath History of presenting complaint: This is a pleasant 50-year-old patient of Dr. Rich. Chronic stable medical conditions include hypothyroid, chronic lower extremity edema, morbid obesity, obstructive sleep apnea. He does not use a CPAP. Patient tested positive for COVID 1970s ago. 9 days prior to that patient having symptoms that included body ache, fever, chills, headache altered sense of smell. Base was present. Patient has been short of breath. Getting slightly worse. Patient's cough became worse. Appetite had gone down. Decided to come in. Pulse ox in the ER dropped down to 81%. Teaching Supervisor consulted Admitted with bilateral COVID 19 pneumonia. Acute hypoxic respiratory failure. Started on dexamethasone and Lovenox. Today: Sitting of the edge of the bed. Feels a bit less foggy. It ate some. On 6 L nasal cannula. Oral intake about 50% Review of systems: Was done for constitutional, cardiovascular, GI, pulmonary. relevant finding as above Active Medications Acetaminophen (Acetaminophen Tab 325 Mg Tab) 650 mg PO Q6HR PRN PRN Reason: Mild Pain or Fever > 100.5 Ascorbic Acid (Ascorbic Acid 500 Mg Tab) 500 mg PO DAILY [facility] Last Admin: 08/18/20 07:55 Dose: 500 mg Documented by: Aspirin (Aspirin 81 Mg) 81 mg PO DAILY [facility] Last Admin: 08/18/20 16:43 Dose: 81 mg Documented by: Cholecalciferol (Cholecalciferol 25 Mcg (1000 Iu) Tablet) 100 mcg PO DAILY [facility] Last Admin: 08/18/20 07:55 Dose: 100 mcg Documented by: Dexamethasone Sodium Phosphate (Dexamethasone Sod Phosphate 10 Mg/Ml 1 Ml Vial) 6 mg IV DAILY [facility] Last Admin: 08/18/20 07:55 Dose: 6 mg Documented by: Enoxaparin Sodium (Enoxaparin 40 Mg/0.4 Ml Syringe) 40 mg SQ DAILY [facility] Last Admin: 08/18/20 07:56 Dose: 40 mg Documented by: Famotidine (Famotidine 20 Mg Tab) 20 mg PO BID [facility] Last Admin: 08/18/20 19:24 Dose: 20 mg Documented by: Sodium Chloride (Saline 0.9%) 1,000 mls @ 75 mls/hr IV .[id number] [facility] Last Admin: 08/18/20 19:24 Dose: 75 mls/hr Documented by: Levothyroxine Sodium (Levothyroxine 100 Mcg Tab) 100 mcg PO DAILY@0630 [facility] Last Admin: 08/18/20 05:32 Dose: 100 mcg Documented by: Lorazepam (Lorazepam 2 Mg/Ml Inj) 0.5 mg IV Q6HR PRN PRN Reason: Anxiety Naloxone HCl (Naloxone 0.4 Mg/Ml 1 Ml Vial) 0.2 mg IV Q2M PRN PRN Reason: Opioid Reversal Zinc Sulfate (Zinc Sulfate 220 Mg Cap) 220 mg PO DAILY [facility] Last Admin: 08/18/20 07:55 Dose: 220 mg Documented by: Past medical history to include: Obstructive sleep apnea does not use CPAP, 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 Physical examination: VITAL SIGNS: 97.2, 82, 20, 132.78, 90% on 6 L GENERAL: sitting at the edge of the bed, short of breath. PSYCH: Alert and oriented x3; mood and affect normal NEUROLOGICAL: Cranial nerves grossly intact; no facial asymmetry, moving limbs Rest of the exam as per nursing and pulmonary INVESTIGATIONS, reviewed in the clinical context: August 18: D-dimer 0.94 CRP 178 WBC 5.6 hemoglobin 15.8 platelets 172 d-dimer 0.82 potassium 3.8 creatinine 0.69 AST 65 ALT [address] chest angiogram for PE: Negative for PE. Bilateral groundglass infiltrates Chest x-ray film personally reviewed by me-bilateral infiltrates Assessment and plan: -Bilateral COVID 19 pneumonia/pneumonitis. Severe. Slow to respond on IV Decadron, subcu Lovenox. Vitamin C, vitamin D, Pepcid, zinc. Pulmonary and ID consulted -Morbid obesity BMI 52.8. Weight loss measures as well as outpatient follow-up with PCP -Acute severe hypoxic respiratory failure secondary to COVID 19-worsening Supplement oxygen. On 6 L nasal cannula -Hypothyroid Continue with Synthroid Reminded to sit up in a chair and use incentive spirometry.
[2020-08-19] MEDS: LEVOTHYROXINE 100 MCG TAB PO SCH (05:06)
[2020-08-19] MEDS: ASPIRIN 81 MG PO SCH (08:13)
[2020-08-19] MEDS: SODIUM CHLORIDE 0.9% 1,000 ML IV SCH ×2 (08:13→20:36)
[2020-08-19] MEDS: CHOLECALCIFEROL 25 MCG (1000 IU) TABLET PO SCH (08:13)
[2020-08-19] MEDS: FAMOTIDINE 20 MG TAB PO SCH ×2 (08:13→20:35)
[2020-08-19] MEDS: ZINC SULFATE 220 MG CAP PO SCH (08:13)
[2020-08-19] MEDS: ASCORBIC ACID 500 MG TAB PO SCH (08:13)
[2020-08-19] MEDS: ENOXAPARIN 40 MG/0.4 ML SYRINGE SQ SCH ×2 (08:13→20:36)
[2020-08-19] MEDS: DEXAMETHASONE SOD PHOSPHATE 10 MG/ML 1 ML VIAL IV SCH (08:21)
--- NOTE | 2020-08-19 11:41 | P.PN ---
Subjective Progress Note Date: 08/19/20 Principal diagnosis: Acute hypoxic respiratory failure secondary to acute covid 19 pneumonia This is a 50-year-old white male with history of hypothyroidism, morbid obesity, obstructive sleep apnea syndrome, patient was admitted through the emergency room yesterday with 10 days' history of multiple constitutional symptoms including nonproductive cough, shortness of breath on exertion, vague aches and pains, intermittent headaches, intermittent episodes of fever and chills with night sweats. Patient was evaluated by his primary care physician a few days ago, and he was made aware a day later that his CoVID test came back positive, and advised to go to the ER if his condition gets any worse. Indeed his symptoms have been progressively getting worse, patient was seen in the ER yesterday, chest x-ray and CT of the chest showed bilateral airspace and groundglass infiltrates throughout both lungs. No evidence of pulmonary embolism. Patient was admitted, he is outside the window for REM, started on the Covid 19 cocktails. Patient tells me that he is feeling better today, feels a bit stronger, less weak, and less short of breath. His CBC showed normal WBC count. Normal platelets. His d-dimer was a bit elevated at 0.8 to electrolytes were noted to be normal. LDH 1125 C-reactive protein 187. Pro-calcitonin 0.13, not clinically significant. Patient is now on 6 L nasal cannula, and his O2 saturation is 90%. Sating at a bedside chair, comfortable, in no distress, extremely pleasant. Patient was reevaluated today on 08/19/2020, he is basically about the same as he was yesterday. Remains on 9 L high flow nasal cannula, sitting at a bedside chair, tells me that he feels may be a bit better compared to yesterday. C- reactive protein is further down today down to 60 compared to 187 on admission. And that's a good improvement. His d-dimer is slightly elevated at 1.13. Pro- calcitonin 0.13, not clinically significant. CBC on admission was basically u nremarkable CT of the chest showed no evidence of pulmonary embolism but it did show bilateral airspace and groundglass infiltrates seen throughout both lung daly. Objective - Vital Signs Vital signs: Vital Signs Temp 97.8 F 08/19/20 09:17 Pulse 72 08/19/20 09:17 Resp 18 08/19/20 09:17 BP 138/73 08/19/20 09:17 Pulse Ox 91 L 08/19/20 09:17 Intake & Output 08/18/20 08/19/20 08/19/20 18:59 06:59 18:59 Intake Total 600 Balance 600 Intake: Intake, IV Titration 600 Amount Sodium Chloride 0.9% 1, 600 000 ml @ 75 mls/hr IV . [id number] ANDERS Rx#:[id number] Other: Voiding Method Toilet # Voids 3 - Exam Physical Exam: Revealed 50-year-old white male, obese, pleasant, in no distress, on 9L high flow nasal cannulatic, Head: Atraumatic, normocephalic. HEENT:[Neck is supple.] [No neck masses.] [No thyromegaly.] [No JVD.] Chest: [Symmetrical chest expansion, crackles at the bases bilaterally. Cardiac Exam: [Normal S1 and S2, no S3 gallop, no murmur.] Abdomen: [Soft, nontender, no megaly, no rebound, no guarding, normal bowel sounds.] Extremities: [No clubbing, no edema, no cyanosis.] Neurological Exam: [No focal neurologic deficit.] Alert and oriented 3. Psychiatric: Normal mood affect and normal mental status examination. Skin: No rashes. - Labs CBC & Chem 7: 08/17/20 13:57 08/17/20 13:57 Labs: Abnormal Lab Results - Last 24 Hours (Table) 08/19/20 08/19/20 Range/Units 07:22 07:22 D-Dimer 1.13 H (<0.60) mg/L FEU C-Reactive Protein 59.8 H (<10.0) mg/L Assessment and Plan Assessment: Impression: Acute hypoxic respiratory failure secondary to acute coVID 19 pneumonia Morbid obesity. Obstructive sleep apnea syndrome. History of hypothyroidism. Recommendation: Continue present supportive care measures. Continue oxygen and titrate accordingly Continue IV Decadron. Continue subcu Lovenox. Continue vitamins D C and zinc Continue Pepcid Add baby aspirin Patient is out of the window for REM. If condition gets worse, could consider TOCI and convalescent plasma. We'll continue to follow Time with Patient: Less than 30
--- NOTE | 2020-08-19 21:06 | P.PN ---
Progress Note - Text Progress Note Date: 08/19/20 Chief Complaint: Short of breath History of presenting complaint: This is a pleasant 50-year-old patient of Dr. Rich. Chronic stable medical conditions include hypothyroid, chronic lower extremity edema, morbid obesity, obstructive sleep apnea. He does not use a CPAP. Patient tested positive for COVID 1970s ago. 9 days prior to that patient having symptoms that included body ache, fever, chills, headache altered sense of smell. Base was present. Patient has been short of breath. Getting slightly worse. Patient's cough became worse. Appetite had gone down. Decided to come in. Pulse ox in the ER dropped down to 81%. Edger Machine Helper consulted Admitted with bilateral COVID 19 pneumonia. Acute hypoxic respiratory failure. Started on dexamethasone and Lovenox. Today: A bit tired. Decreased oral intake. Shortness of breath. Did sit up in a chair. Review of systems: Was done for constitutional, cardiovascular, GI, pulmonary. relevant finding as above Active Medications Acetaminophen (Acetaminophen Tab 325 Mg Tab) 650 mg PO Q6HR PRN PRN Reason: Mild Pain or Fever > 100.5 Ascorbic Acid (Ascorbic Acid 500 Mg Tab) 500 mg PO DAILY [facility] Last Admin: 08/19/20 08:13 Dose: 500 mg Documented by: Aspirin (Aspirin 81 Mg) 81 mg PO DAILY [facility] Last Admin: 08/19/20 08:13 Dose: 81 mg Documented by: Cholecalciferol (Cholecalciferol 25 Mcg (1000 Iu) Tablet) 100 mcg PO DAILY [facility] Last Admin: 08/19/20 08:13 Dose: 100 mcg Documented by: Dexamethasone Sodium Phosphate (Dexamethasone Sod Phosphate 10 Mg/Ml 1 Ml Vial) 6 mg IV DAILY [facility] Last Admin: 08/19/20 08:21 Dose: 6 mg Documented by: Enoxaparin Sodium (Enoxaparin 40 Mg/0.4 Ml Syringe) 40 mg SQ BID [facility] Last Admin: 08/19/20 20:36 Dose: 40 mg Documented by: Famotidine (Famotidine 20 Mg Tab) 20 mg PO BID [facility] Last Admin: 08/19/20 20:35 Dose: 20 mg Documented by: Sodium Chloride (Saline 0.9%) 1,000 mls @ 75 mls/hr IV .[id number] [facility] Last Admin: 08/19/20 20:36 Dose: 75 mls/hr Documented by: Levothyroxine Sodium (Levothyroxine 100 Mcg Tab) 100 mcg PO DAILY@0630 [facility] Last Admin: 08/19/20 05:06 Dose: 100 mcg Documented by: Lorazepam (Lorazepam 2 Mg/Ml Inj) 0.5 mg IV Q6HR PRN PRN Reason: Anxiety Naloxone HCl (Naloxone 0.4 Mg/Ml 1 Ml Vial) 0.2 mg IV Q2M PRN PRN Reason: Opioid Reversal Zinc Sulfate (Zinc Sulfate 220 Mg Cap) 220 mg PO DAILY [facility] Last Admin: 08/19/20 08:13 Dose: 220 mg Documented by: Past medical history to include: Obstructive sleep apnea does not use CPAP, 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 Physical examination: VITAL SIGNS: 97.6, 71, 18, 118/74, 92% on 9 L GENERAL: Laying in bed short of breath. PSYCH: Alert and oriented x3; mood and affect slightly anxious NEUROLOGICAL: Cranial nerves grossly intact; no facial asymmetry, moving limbs Rest of the exam as per nursing and pulmonary INVESTIGATIONS, reviewed in the clinical context: August 19: D-dimer 1.13 CRP 59.8 August 18: D-dimer 0.94 CRP 178 WBC 5.6 hemoglobin 15.8 platelets 172 d-dimer 0.82 potassium 3.8 creatinine 0.69 AST 65 ALT [address] chest angiogram for PE: Negative for PE. Bilateral groundglass infiltrates Chest x-ray film personally reviewed by me-bilateral infiltrates Assessment and plan: -Bilateral COVID 19 pneumonia/pneumonitis. Severe. Slow to respond on IV Decadron, subcu Lovenox. Vitamin C, vitamin D, Pepcid, zinc. -Morbid obesity BMI 52.8. Weight loss measures as well as outpatient follow-up with PCP -Acute severe hypoxic respiratory failure secondary to COVID 19-worsening On 9 L nasal cannula -Hypothyroid Continue with Synthroid Discussed with the patient. Continue current medication.
--- NOTE | 2020-08-19 22:55 | PN ---
PROGRESS NOTE DATE OF SERVICE: 08/19/2020 REASON FOR FOLLOWUP: COVID-19 pneumonia. INTERVAL HISTORY: Patient is currently afebrile. The patient is breathing slightly comfortably today. The patient denies having any chest pain. He did have some cough not bringing up any sputum. No abdominal pain or diarrhea. PHYSICAL EXAMINATION: Blood pressure is 146/80, pulse of 82, temperature 97.7, 93% on 2 L nasal cannula. General description is a middle-aged male up in the chair in no distress. Respiratory system: Unlabored breathing, decreased intensity of breath sounds. No wheeze. HEART: S1, S2. Regular rate and rhythm. ABDOMEN soft, no tenderness LABS: D. dimer is 1.13. CRP is down to 59.8. DIAGNOSTIC IMPRESSION AND PLAN: Patient with acute COVID-19 infection in this patient currently covered with Dexamethasone, Lovenox, zinc, ascorbic acid to to continue along with respiratory support and monitor clinical course closely. MMODL / IJN: [id number] /
[2020-08-20] MEDS: LEVOTHYROXINE 100 MCG TAB PO SCH (06:19)
[2020-08-20] MEDS: DEXAMETHASONE SOD PHOSPHATE 10 MG/ML 1 ML VIAL IV SCH (08:02)
[2020-08-20] MEDS: ENOXAPARIN 40 MG/0.4 ML SYRINGE SQ SCH ×2 (08:02→23:04)
[2020-08-20] MEDS: FAMOTIDINE 20 MG TAB PO SCH ×2 (08:03→23:04)
[2020-08-20] MEDS: ASCORBIC ACID 500 MG TAB PO SCH (08:03)
[2020-08-20] MEDS: ASPIRIN 81 MG PO SCH (08:03)
[2020-08-20] MEDS: CHOLECALCIFEROL 25 MCG (1000 IU) TABLET PO SCH (08:03)
[2020-08-20] MEDS: ZINC SULFATE 220 MG CAP PO SCH (08:03)
[2020-08-20] MEDS: SODIUM CHLORIDE 0.9% 1,000 ML IV SCH (11:40)
--- NOTE | 2020-08-20 12:06 | P.PN ---
Subjective Progress Note Date: 08/20/20 Principal diagnosis: Acute hypoxic respiratory failure secondary to acute covid 19 pneumonia This is a 50-year-old white male with history of hypothyroidism, morbid obesity, obstructive sleep apnea syndrome, patient was admitted through the emergency room yesterday with 10 days' history of multiple constitutional symptoms including nonproductive cough, shortness of breath on exertion, vague aches and pains, intermittent headaches, intermittent episodes of fever and chills with night sweats. Patient was evaluated by his primary care physician a few days ago, and he was made aware a day later that his CoVID test came back positive, and advised to go to the ER if his condition gets any worse. Indeed his symptoms have been progressively getting worse, patient was seen in the ER yesterday, chest x-ray and CT of the chest showed bilateral airspace and groundglass infiltrates throughout both lungs. No evidence of pulmonary embolism. Patient was admitted, he is outside the window for REM, started on the Covid 19 cocktails. Patient tells me that he is feeling better today, feels a bit stronger, less weak, and less short of breath. His CBC showed normal WBC count. Normal platelets. His d-dimer was a bit elevated at 0.8 to electrolytes were noted to be normal. LDH 1125 C-reactive protein 187. Pro-calcitonin 0.13, not clinically significant. Patient is now on 6 L nasal cannula, and his O2 saturation is 90%. Sating at a bedside chair, comfortable, in no distress, extremely pleasant. Patient was reevaluated today on 08/19/2020, he is basically about the same as he was yesterday. Remains on 9 L high flow nasal cannula, sitting at a bedside chair, tells me that he feels may be a bit better compared to yesterday. C- reactive protein is further down today down to 60 compared to 187 on admission. And that's a good improvement. His d-dimer is slightly elevated at 1.13. Pro- calcitonin 0.13, not clinically significant. CBC on admission was basically u nremarkable CT of the chest showed no evidence of pulmonary embolism but it did show bilateral airspace and groundglass infiltrates seen throughout both lung daly. Patient was reevaluated today on 08/20/2020, feeling better, breathing a bit easier, however he remains on 9 L high flow nasal cannula. His O2 saturation is ranging between 88% up to 97%, I believe his option could be titrated down. Clinically the patient looks great, not in any distress, sitting at a bedside chair, continues to have some cough, chest tightness, and shortness of breath with activity. Objective - Vital Signs Vital signs: Vital Signs Temp 98 F 08/20/20 09:42 Pulse 66 08/20/20 09:42 Resp 18 08/20/20 09:42 BP 142/74 08/20/20 09:42 Pulse Ox 97 08/20/20 09:42 Intake & Output 08/19/20 08/20/20 08/20/20 18:59 06:59 18:59 Intake Total 600 600 Balance 600 600 Intake: Intake, IV Titration 600 600 Amount Sodium Chloride 0.9% 1, 600 600 000 ml @ 75 mls/hr IV . [id number] [facility] Rx#:[id number] Other: Voiding Method Toilet # Voids 3 - Exam Physical Exam: Revealed 50-year-old white male, obese, pleasant, in no distress, on 9L high flow nasal cannulatic, Head: Atraumatic, normocephalic. HEENT:[Neck is supple.] [No neck masses.] [No thyromegaly.] [No JVD.] Chest: [Symmetrical chest expansion, crackles at the bases bilaterally. Cardiac Exam: [Normal S1 and S2, no S3 gallop, no murmur.] Abdomen: [Soft, nontender, no megaly, no rebound, no guarding, normal bowel sounds.] Extremities: [No clubbing, no edema, no cyanosis.] Neurological Exam: [No focal neurologic deficit.] Alert and oriented 3. Psychiatric: Normal mood affect and normal mental status examination. Skin: No rashes. - Labs CBC & Chem 7: 08/17/20 13:57 08/17/20 13:57 Labs: Abnormal Lab Results - Last 24 Hours (Table) 08/20/20 08/20/20 Range/Units 04:49 04:49 D-Dimer 0.77 H (<0.60) mg/L FEU C-Reactive Protein 32.8 H (<10.0) mg/L Assessment and Plan Assessment: Impression: Acute hypoxic respiratory failure secondary to acute coVID 19 pneumonia Morbid obesity. Obstructive sleep apnea syndrome. History of hypothyroidism. Recommendation: Continue present supportive care measures. Continue oxygen and titrate accordingly, once the patient's oxidation is down to 4 L nasal cannula, discharge planning could be considered. Continue IV Decadron. Continue subcu Lovenox. Continue vitamins D C and zinc Continue Pepcid Add baby aspirin Patient is out of the window for REM. If condition gets worse, could consider TOCI and convalescent plasma. We'll continue to follow Time with Patient: Less than 30
--- NOTE | 2020-08-20 18:55 | PN ---
PROGRESS NOTE DATE OF SERVICE: 08/20/2020 REASON FOR FOLLOWUP: COVID-19 pneumonia. INTERVAL HISTORY: The patient is currently afebrile. The patient is breathing slightly comfortably, currently on 6 L compared to 9 L this morning. The patient denies having any chest pain. Occasional cough. No nausea, no vomiting, no abdominal pain or diarrhea. PHYSICAL EXAMINATION: Blood pressure is 136/76, pulse of 57, temperature 98.4. He is 97% on 6 L nasal cannula. General description is a middle-aged male up in the chair in no distress. RESPIRATORY SYSTEM: Unlabored breathing with decreased intensity of breath sounds. No wheeze. HEART: S1, S2. Regular rate and rhythm. ABDOMEN: Soft. No tenderness. LABS: Hemoglobin is 15.9, white count of 5.6, BUN of 10, creatinine 0.69. DIAGNOSTIC IMPRESSION AND PLAN: Patient with acute COVID-19 infection in this patient who seems to have shown some clinical response to current treatment protocol of dexamethasone, Lovenox, zinc and ascorbic acid; to continue along with respiratory support. Monitor his clinical course closely. MMODL / IJN: [id number] / KEVIN
--- NOTE | 2020-08-20 22:20 | P.PN ---
Progress Note - Text Progress Note Date: 08/20/20 Chief Complaint: Short of breath History of presenting complaint: This is a pleasant 50-year-old patient of Dr. Rich. Chronic stable medical conditions include hypothyroid, chronic lower extremity edema, morbid obesity, obstructive sleep apnea. He does not use a CPAP. Patient tested positive for COVID 1970s ago. 9 days prior to that patient having symptoms that included body ache, fever, chills, headache altered sense of smell. Base was present. Patient has been short of breath. Getting slightly worse. Patient's cough became worse. Appetite had gone down. Decided to come in. Pulse ox in the ER dropped down to 81%. 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 Acute hypoxic respiratory failure. Started on dexamethasone and Lovenox. Today: Sitting up in a chair. Some shortness of breath. Tolerating his diet. Using incentive spirometry. Slight cough. Review of systems: Was done for constitutional, cardiovascular, GI, pulmonary. relevant finding as above Active Medications Acetaminophen (Acetaminophen Tab 325 Mg Tab) 650 mg PO Q6HR PRN PRN Reason: Mild Pain or Fever > 100.5 Ascorbic Acid (Ascorbic Acid 500 Mg Tab) 500 mg PO DAILY [facility] Last Admin: 08/20/20 08:03 Dose: 500 mg Documented by: Aspirin (Aspirin 81 Mg) 81 mg PO DAILY [facility] Last Admin: 08/20/20 08:03 Dose: 81 mg Documented by: Cholecalciferol (Cholecalciferol 25 Mcg (1000 Iu) Tablet) 100 mcg PO DAILY [facility] Last Admin: 08/20/20 08:03 Dose: 100 mcg Documented by: Dexamethasone Sodium Phosphate (Dexamethasone Sod Phosphate 10 Mg/Ml 1 Ml Vial) 6 mg IV DAILY [facility] Last Admin: 08/20/20 08:02 Dose: 6 mg Documented by: Enoxaparin Sodium (Enoxaparin 40 Mg/0.4 Ml Syringe) 40 mg SQ BID [facility] Last Admin: 08/20/20 08:02 Dose: 40 mg Documented by: Famotidine (Famotidine 20 Mg Tab) 20 mg PO BID [facility] Last Admin: 08/20/20 08:03 Dose: 20 mg Documented by: Sodium Chloride (Saline 0.9%) 1,000 mls @ 75 mls/hr IV .[id number] [facility] Last Admin: 08/20/20 11:40 Dose: 75 mls/hr Documented by: Levothyroxine Sodium (Levothyroxine 100 Mcg Tab) 100 mcg PO DAILY@0630 [facility] Last Admin: 08/20/20 06:19 Dose: 100 mcg Documented by: Lorazepam (Lorazepam 2 Mg/Ml Inj) 0.5 mg IV Q6HR PRN PRN Reason: Anxiety Naloxone HCl (Naloxone 0.4 Mg/Ml 1 Ml Vial) 0.2 mg IV Q2M PRN PRN Reason: Opioid Reversal Zinc Sulfate (Zinc Sulfate 220 Mg Cap) 220 mg PO DAILY [facility] Last Admin: 08/20/20 08:03 Dose: 220 mg Documented by: Past medical history to include: Obstructive sleep apnea does not use CPAP, 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 Physical examination: VITAL SIGNS: 98.4, 57, 18, 136 with 76, 97% on 6 L GENERAL: Sitting up in a chair, slight short of breath. PSYCH: Alert and oriented x3; mood and affect slightly anxious NEUROLOGICAL: Cranial nerves grossly intact; no facial asymmetry, moving limbs Rest of the exam as per nursing and pulmonary INVESTIGATIONS, reviewed in the clinical context: August 20: D-dimer 0.77 CRP 32.8 August 19: D-dimer 1.13 CRP 59.8 August 18: D-dimer 0.94 CRP 178 WBC 5.6 hemoglobin 15.8 platelets 172 d-dimer 0.82 potassium 3.8 creatinine 0.69 AST 65 ALT [address] chest angiogram for PE: Negative for PE. Bilateral groundglass infiltrates Chest x-ray film personally reviewed by me-bilateral infiltrates Assessment and plan: -Bilateral COVID 19 pneumonia/pneumonitis. Severe. Slow to respond on IV Decadron, subcu Lovenox. Vitamin C, vitamin D, Pepcid, zinc. -Morbid obesity BMI 52.8. Weight loss measures as well as outpatient follow-up with PCP -Acute severe hypoxic respiratory failure secondary to COVID slow to respond On 6 L nasal cannula -Hypothyroid Continue with Synthroid Discussed with the patient. Continue current medication. I encouraged to sit up in a chair and continue using the incentive spirometry. Increase activity in the room.
[2020-08-21] MEDS: SODIUM CHLORIDE 0.9% 1,000 ML IV SCH ×2 (03:40→05:10)
[2020-08-21] MEDS: LEVOTHYROXINE 100 MCG TAB PO SCH (05:10)
[2020-08-21] MEDS: ASPIRIN 81 MG PO SCH (08:05)
[2020-08-21] MEDS: CHOLECALCIFEROL 25 MCG (1000 IU) TABLET PO SCH (08:05)
[2020-08-21] MEDS: ASCORBIC ACID 500 MG TAB PO SCH (08:06)
[2020-08-21] MEDS: FAMOTIDINE 20 MG TAB PO SCH (08:06)
[2020-08-21] MEDS: ZINC SULFATE 220 MG CAP PO SCH (08:06)
[2020-08-21] MEDS: DEXAMETHASONE SOD PHOSPHATE 10 MG/ML 1 ML VIAL IV SCH (08:06)
[2020-08-21] MEDS: ENOXAPARIN 40 MG/0.4 ML SYRINGE SQ SCH (08:06)
--- NOTE | 2020-08-21 09:21 | XR ---
EXAMINATION TYPE: XR chest 1V portable DATE OF EXAM: 08/21/2020 COMPARISON: 08/17/2020 INDICATION: Covid pneumonia short of breath TECHNIQUE: Single frontal view of the chest is obtained. FINDINGS: The heart size is now be prominent. The pulmonary vasculature is normal. Scattered subsegmental infiltrates are present bilaterally. Findings are improving from comparison. IMPRESSION: 1. Improving bilateral lung infiltrates
--- NOTE | 2020-08-21 10:45 | P.PN ---
Subjective Progress Note Date: 08/21/20 Principal diagnosis: Acute hypoxic respiratory failure secondary to acute covid 19 pneumonia This is a 50-year-old white male with history of hypothyroidism, morbid obesity, obstructive sleep apnea syndrome, patient was admitted through the emergency room yesterday with 10 days' history of multiple constitutional symptoms including nonproductive cough, shortness of breath on exertion, vague aches and pains, intermittent headaches, intermittent episodes of fever and chills with night sweats. Patient was evaluated by his primary care physician a few days ago, and he was made aware a day later that his CoVID test came back positive, and advised to go to the ER if his condition gets any worse. Indeed his symptoms have been progressively getting worse, patient was seen in the ER yesterday, chest x-ray and CT of the chest showed bilateral airspace and groundglass infiltrates throughout both lungs. No evidence of pulmonary embolism. Patient was admitted, he is outside the window for REM, started on the Covid 19 cocktails. Patient tells me that he is feeling better today, feels a bit stronger, less weak, and less short of breath. His CBC showed normal WBC count. Normal platelets. His d-dimer was a bit elevated at 0.8 to electrolytes were noted to be normal. LDH 1125 C-reactive protein 187. Pro-calcitonin 0.13, not clinically significant. Patient is now on 6 L nasal cannula, and his O2 saturation is 90%. Sating at a bedside chair, comfortable, in no distress, extremely pleasant. Patient was reevaluated today on 08/19/2020, he is basically about the same as he was yesterday. Remains on 9 L high flow nasal cannula, sitting at a bedside chair, tells me that he feels may be a bit better compared to yesterday. C- reactive protein is further down today down to 60 compared to 187 on admission. And that's a good improvement. His d-dimer is slightly elevated at 1.13. Pro- calcitonin 0.13, not clinically significant. CBC on admission was basically u nremarkable CT of the chest showed no evidence of pulmonary embolism but it did show bilateral airspace and groundglass infiltrates seen throughout both lung daly. Patient was reevaluated today on 08/20/2020, feeling better, breathing a bit easier, however he remains on 9 L high flow nasal cannula. His O2 saturation is ranging between 88% up to 97%, I believe his option could be titrated down. Clinically the patient looks great, not in any distress, sitting at a bedside chair, continues to have some cough, chest tightness, and shortness of breath with activity. Patient was reevaluated today on 08/21/2020, remains on oxygen, however he was titrated down to 4 L and his O2 saturation is 96%. His chest x-ray today which I ordered and I reviewed, clearly showing improvement in his bilateral infiltrates. Clinically the patient is obviously getting better, and at this point I believe the patient could be considered for discharge planning with home oxygen and follow-up on outpatient basis. His C-reactive protein today is down to 16.5, it was 188 upon admission. Objective - Vital Signs Vital signs: Vital Signs Temp 97.3 F L 08/21/20 09:59 Pulse 65 08/21/20 09:59 Resp 20 08/21/20 09:59 BP 155/93 08/21/20 09:59 Pulse Ox 96 08/21/20 09:59 Intake & Output 08/20/20 08/21/20 08/21/20 18:59 06:59 18:59 Intake Total 600 400 600 Balance 600 400 600 Intake: Intake, IV Titration 600 600 Amount Sodium Chloride 0.9% 1, 600 600 000 ml @ 75 mls/hr IV . [id number] [facility] Rx#:[id number] Oral 400 Other: Voiding Method Toilet # Voids 1 # Bowel Movements 1 - Exam Physical Exam: Revealed 50-year-old white male, obese, pleasant, in no distress, on 4 L nasal cannula with excellent O2 saturations. Head: Atraumatic, normocephalic. HEENT:[Neck is supple.] [No neck masses.] [No thyromegaly.] [No JVD.] Chest: [Symmetrical chest expansion, minimal crackles especially at the left base. Cardiac Exam: [Normal S1 and S2, no S3 gallop, no murmur.] Abdomen: [Soft, nontender, no megaly, no rebound, no guarding, normal bowel sounds.] Extremities: [No clubbing, no edema, no cyanosis.] Neurological Exam: [No focal neurologic deficit.] Alert and oriented 3. Psychiatric: Normal mood affect and normal mental status examination. Skin: No rashes. - Labs CBC & Chem 7: 08/17/20 13:57 08/17/20 13:57 Labs: Abnormal Lab Results - Last 24 Hours (Table) 08/21/20 08/21/20 Range/Units 05:19 05:19 D-Dimer 0.93 H (<0.60) mg/L FEU C-Reactive Protein 16.5 H (<10.0) mg/L Assessment and Plan Assessment: Impression: Acute hypoxic respiratory failure secondary to acute coVID 19 pneumonia Morbid obesity. Obstructive sleep apnea syndrome. History of hypothyroidism. Recommendation: Chest x-ray was reviewed and it is clearly showing improvement. His oxygen requirement is coming down significantly. Continue present supportive care measures. Continue oxygen and titrate accordingly, Change IV Decadron to oral Decadron for about a week. Continue vitamins D C and zinc Continue Pepcid Continue aspirin Patient will be cleared to be discharged home today on oxygen at 4 L. And f ollow-up on outpatient basis. Time with Patient: Less than 30
[2020-08-21 15:14] VITALS: BP 113/70; PULSE 67; RESP 18; TEMP 98.3
--- NOTE | 2020-08-21 22:36 | P.PN ---
Progress Note - Text Progress Note Date: 08/21/20 REASON FOR FOLLOWUP: COVID-19 pneumonia. INTERVAL HISTORY: The patient is afebrile. The patient is breathing slightly comfortably. The patient denies having any chest pain. Occasional cough. No nausea, no vomiting, no abdominal pain or diarrhea. PHYSICAL EXAMINATION: Blood pressure is 130/70, pulse of 57, temperature 98.4. He is 97% on 6 L nasal cannula. General description is a middle-aged male up in the chair in no distress. RESPIRATORY SYSTEM: Unlabored breathing with decreased intensity of breath sounds. No wheeze. HEART: S1, S2. Regular rate and rhythm. ABDOMEN: Soft. No tenderness. LABS: reviewed DIAGNOSTIC IMPRESSION AND PLAN: Patient with acute COVID-19 infection in this patient has shown some clinical response to current treatment protocol of dexamethasone, Lovenox, zinc and ascorbic acid; to continue along with respiratory support.
--- NOTE | 2020-08-21 22:38 | P.DS ---
Providers Date of admission: 08/17/20 16:30 Expected date of discharge: 08/21/20 Attending physician: Eusebio Koch Consults: 08/17/20 16:25 Consult Physician Routine Consulting Provider: Hector Montes Consult Reason/Comments: Covid pneumonia, hypoxemia Do you want consulting provider notified?: Yes 08/17/20 21:22 Consult Physician Routine Consulting Provider: Mariana Echeverria Consult Reason/Comments: COVID 19 Do you want consulting provider notified?: Yes [facility] Course: Chief Complaint: Short of breath History of presenting complaint: This is a pleasant 50-year-old patient of Dr. Rich. Chronic stable medical conditions include hypothyroid, chronic lower extremity edema, morbid obesity, obstructive sleep apnea. He does not use a CPAP. Patient tested positive for COVID 1970s ago. 9 days prior to that patient having symptoms that included body ache, fever, chills, headache altered sense of smell. Base was present. Patient has been short of breath. Getting slightly worse. Patient's cough became worse. Appetite had gone down. Decided to come in. Pulse ox in the ER dropped down to 81%. 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 Acute hypoxic respiratory failure. Started on dexamethasone and Lovenox. Today: Patient breathing much improved. Sitting up in a chair. 96% on 2 L. She'll be discharged home on oxygen. Patient does desaturate to 85% with walking Care was discussed Consultation: Dr. 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 Physical examination: VITAL SIGNS: 98.3, 67, 18, 130 70, 96% on 2 L GENERAL: Sitting up in a chair, breathing improved PSYCH: Alert and oriented x3; mood and affect slightly anxious NEUROLOGICAL: Cranial nerves grossly intact; no facial asymmetry, moving limbs Rest of the exam as per nursing and pulmonary INVESTIGATIONS, reviewed in the clinical context: August 21: D-dimer 0.93 CRP 16.5 August 20: D-dimer 0.77 CRP 32.8 August 19: D-dimer 1.13 CRP 59.8 August 18: D-dimer 0.94 CRP 178 WBC 5.6 hemoglobin 15.8 platelets 172 d-dimer 0.82 potassium 3.8 creatinine 0.69 AST 65 ALT [address] chest angiogram for PE: Negative for PE. Bilateral groundglass infiltrates Chest x-ray film personally reviewed by me-bilateral infiltrates Assessment and plan: -Bilateral COVID 19 pneumonia/pneumonitis. Severe. Much improved on IV Decadron, subcu Lovenox. Vitamin C, vitamin D, Pepcid, zinc. -Morbid obesity BMI 52.8. Weight loss measures as well as outpatient follow-up with PCP -Acute severe hypoxic respiratory failure secondary to COVID improving On 2 L nasal cannula -Hypothyroid Continue with Synthroid Disposition: Home with oxygen Patient Condition at Discharge: Good Plan - Discharge Summary Discharge Rx Participant: No New Discharge Prescriptions: New dexAMETHasone [Dexamethasone] 6 mg PO DAILY #21 tablet Zinc Sulfate [Orazinc] 220 mg PO DAILY #30 cap Famotidine [Pepcid] 20 mg PO BID #60 tab Ascorbic Acid [Vitamin C] 500 mg PO DAILY #30 tab Cholecalciferol [Vitamin D3 (25 Mcg = 1000 Iu)] 100 mcg PO DAILY #120 tablet Rivaroxaban [Xarelto] 2.5 mg PO DAILY #30 tablet Continue Levothyroxine Sodium [Synthroid] 100 mcg PO DAILY D-Methorphan/PE/Acetaminophen [Vicks Dayquil Liquicaps] 2 cap PO Q12H PRN PRN Reason: Cold Symptoms Dm/Acetaminophen/Doxylamine [Vicks Nyquil Liquicaps] 2 cap PO Q12H PRN PRN Reason: Cold Symptoms Discontinued Potassium Chloride ER [K-Dur 20] 20 meq PO DAILY Furosemide [Lasix] 20 mg PO DAILY Discharge Medication List Levothyroxine Sodium [Synthroid] 100 mcg PO DAILY 04/18/18 [History] D-Methorphan/PE/Acetaminophen [Vicks Dayquil Liquicaps] 2 cap PO Q12H PRN 08/17/20 [History] Dm/Acetaminophen/Doxylamine [Vicks Nyquil Liquicaps] 2 cap PO Q12H PRN 08/17/20 [History] Ascorbic Acid [Vitamin C] 500 mg PO DAILY #30 tab 08/21/20 [Rx] Cholecalciferol [Vitamin D3 (25 Mcg = 1000 Iu)] 100 mcg PO DAILY #120 tablet 08/21/20 [Rx] Famotidine [Pepcid] 20 mg PO BID #60 tab 08/21/20 [Rx] Rivaroxaban [Xarelto] 2.5 mg PO DAILY #30 tablet 08/21/20 [Rx] Zinc Sulfate [Orazinc] 220 mg PO DAILY #30 cap 08/21/20 [Rx] dexAMETHasone [Dexamethasone] 6 mg PO DAILY #21 tablet 08/21/20 [Rx] Follow up Appointment(s)/Referral(s): Eric Herrera MD [STAFF PHYSICIAN] - 09/18/20 1:15 pm Savage Rich MD [Primary Care Provider] - 08/31/20 9:20 am [facility] [NON-STAFF] - As Needed (oxygen ) Patient Instructions/Handouts: Coronavirus Disease 2019 (COVID-19) Activity/Diet/Wound Care/Special Instructions: covid 19 isolation orders home fio2 Discharge Disposition: HOME SELF-CARE
== END 2020-08-21 16:53 | disposition home or self-care (01) | DRG 177 ==
LOC: EC 10:49 → 4SSUR 16:30
PROVIDERS: ADMIT Hospitalist; ATTEND Hospitalist
PROC: 5A0945A Assistance with Respiratory Ventilation, 24-96 Consecutive Hours, High Flow/Velocity Cannula (ICD-10-PCS; principal; 2020-08-18)
DX: U07.1 COVID-19 (principal); J12.82 Pneumonia due to coronavirus disease 2019; J96.01 Acute respiratory failure with hypoxia; Z68.43 Body mass index [BMI] 50.0-59.9, adult; E66.01 Morbid (severe) obesity due to excess calories; E11.9 Type 2 diabetes mellitus without complications; G47.33 Obstructive sleep apnea (adult) (pediatric); E03.9 Hypothyroidism, unspecified; Z79.890 Hormone replacement therapy; Z79.899 Other long term (current) drug therapy; Z87.19 Personal history of other diseases of the digestive system; Z98.890 Other specified postprocedural states; Z83.3 Family history of diabetes mellitus
CPT/HCPCS: 36415; 71045; 71046; 71275; 80053; 82728; 83605; 83615; 83735; 84145; 85025; 85379; 85610; 85730; 86140; 93005; 94760; 99285

== ENCOUNTER → 2023-01-31 | Outpatient (CLI) | payer BC ==
[~2023-01-31] MED LIST: REGADENOSON 0.4 MG/5 ML SYRINGE IV ONE
--- NOTE | 2023-01-31 15:31 | CA ---
Lexiscan Nuclear Stress Test Report Name: Janes Flood Exam Date: 01/31/2023 09:16 Exam Location: [place] [facility] Ht (in): 73 Wt (lb): 435 BSA: 2.99 Ordering Phys: Mathieu Montez MD Referring Phys: MATHIEU MONTEZ,, Technologist: Zac Morrow Age: 52 Gender: M : 1970 Procedure CPT: Indications: I20.9 angina pectoris ICD-10 Codes: Patient History: DIFFICULTY IN BREATHING, FORMER SMOKER Medications: LEVOTHYROXINE,,,,, Meds past 24 hrs: Pretest Chest Pain: STRESS TEST Lexiscan Protocol Exercise Duration (min:sec): 01:[address] Depressions (mm): Angina Score: Lemus Score: Resting HR (bpm): 69 Peak HR (bpm): 93 Resting BP (mmHg): 133 / 68 Peak BP (mmHg): 133 / 63 MPHR: 170 Target HR: 145 % MPHR: 55 METS: 1.0 Total Dose: Peak Dose: Atropine: Double Product: 10714 BP Response: Stress Termination: INFUSION COMPLETE Stress Symptoms: HEADACHE Stress Summary: ECG ANALYSIS Resting ECG: Stress ECG: CONCLUSIONS At baseline EKG showed normal sinus rhythm, normal axis, no significant ST or T wave abnormalities. Patient recieved IV infusion of Lexiscan 0.4mg and at peak infusion EKG showed no significant change from baseline. Conclusions: 1. Normal EKG response to Lexiscan infusion 2. Nuclear imaging to be reported separately. Dr. Luciano Slater DO (Electronically Signed) Final Date: 31 January 2023 15:30
== END | disposition home or self-care (01) ==
LOC: RADNMMAIN 07:40
PROVIDERS: ATTEND Internal Medicine Clinical Cardiac Electrophysiology
DX: I20.9 Angina pectoris, unspecified (principal)
CPT/HCPCS: 93017; 78452; A9500

== ENCOUNTER 2023-03-13 11:59 | Day surgery (SDC) | payer BC ==
[2023-03-10 12:57] VITALS: BMI 52.7
[~2023-03-13 11:59] MED LIST changes: +ALPRAZolam 0.25 MG TAB PO PRN; +ALPRAZolam 0.5 MG TAB PO PRN; +ASPIRIN 325 MG TAB PO STA; +NITROGLYCERIN SL TABS 0.4 MG TAB SUBLINGUAL PRN; -REGADENOSON 0.4 MG/5 ML SYRINGE IV ONE; +SODIUM CHLORIDE 0.9% 1,000 ML in EMPTY BAG 1 BAG IV SCH
[2023-03-13] MEDS ORDERED: IV FLUID CONTINUATION 1,000 ML IV ONE (12:27)
[2023-03-13] MEDS ORDERED: VERAPAMIL 2.5 MG/ML 2 ML AMP ONE (12:29)
[2023-03-13] MEDS ORDERED: HEPARIN SODIUM 1,000 UN/ML (10ML VL) ONE (12:30)
[2023-03-13] MEDS ORDERED: fentaNYL (PF) 50 MCG/ML 2 ML AMP ONE (12:30)
[2023-03-13] MEDS ORDERED: SODIUM CHLORIDE 0.9% 1,000 ML IV ONE (12:31)
[2023-03-13 12:34] LABS: Basophils # (A) 0.1 k/uL (0-0.2); Basophils % (A) 1 %; Eosinophils # (A) 0.3 k/uL (0-0.7); Eosinophils % (A) 2 %; HCT 49.8 % (39.0-53.0); HGB 16.4 gm/dL (13.0-17.5); Lymphocytes # (A) 3.3 k/uL (1.0-4.8); Lymphocytes % (A) 27 %; MCHC 32.9 g/dL (31.0-37.0); MCV 85.2 fL (80.0-100.0); Mean Platelet Volume 8.5; Monocytes # (A) 0.7 k/uL (0-1.0); Monocytes % (A) 5 %; Neutrophils # (A) 8.1 k/uL (1.3-7.7); Neutrophils % (A) 64 %; Platelet Count 247 k/uL (150-450); RBC 5.85 m/uL (4.30-5.90); WBC 12.6 k/uL (3.8-10.6)
[2023-03-13 12:46] LABS: African American GFR (CKD) >90 (>60 ml/min/1.73 sqM); Anion Gap 9 mmol/L; Blood Urea Nitrogen 15 mg/dL (9-20); Carbon Dioxide 30 mmol/L (22-30); Chloride 100 mmol/L (98-107); Glucose 98 mg/dL (74-99); Non-African American GFR(CKD) >90 (>60 ml/min/1.73 sqM); Potassium 4.1 mmol/L (3.5-5.1); Sodium 139 mmol/L (137-145)
[2023-03-13 12:51] VITALS: TEMP 97.6
[2023-03-13] MEDS ORDERED: fentaNYL (PF) 50 MCG/ML 2 ML AMP IVP ONE (12:58)
[2023-03-13] MEDS ORDERED: MIDAZOLAM 2 MG/2 ML VIAL IVP ONE (12:58)
[2023-03-13] MEDS ORDERED: LIDOCAINE 1% INJ 10MG/ML (5 ML VIAL-PF) SQ ONE (12:59)
[2023-03-13] MEDS ORDERED: VERAPAMIL SYRINGE (5 MG/10 ML) INTRAARTER ONE ×2 (13:01→13:02)
[2023-03-13] MEDS ORDERED: HEPARIN SODIUM 1,000 UN/ML (10ML VL) IV ONE (13:08)
[2023-03-13] MEDS ORDERED: IOPAMIDOL-370 100ML BTL INJ ONE (13:15)
[2023-03-13] MEDS ORDERED: RX INFO: IV CONTRAST WAS GIVEN 1 EACH MISC MISCELLANE PRN (13:22)
--- NOTE | 2023-03-13 13:22 | P.CARDCATH ---
Date of Procedure: 03/13/23 Description of Procedure: DIAGNOSTIC CORONARY ANGIOGRAPHY and LEFT HEART CATH REPORT PROCEDURES PERFORMED: Left heart catheterization Selective coronary angiography Moderate conscious sedation 20 mins Right radial access INDICATION: Frequent PVCs Patient is known to Dr. ibrahim. He presented to the clinic because of shortness of breath and was found to have more than 10% of PVCs mostly monomorphic. His echo cardiac exam showed an EF of 55%. Due to frequent PVCs and shortness of breath he was scheduled for an outpatient heart catheterization CONSENT: I have discussed the risks, benefits and alternative therapies for the above-mentioned procedure, sedation/analgesia and necessary blood product administration (if indicated, as they pertain to this patient). The patient has indicated understanding and acceptance of the risks and procedures discussed. Conscious Sedation: Patient's ECG, heart rate, blood pressure, pulse oximetry was monitored throughout the duration of procedure under the direct supervision. 2 mg Versed and 50 mg Fentanyl were used for induction of moderate conscious sedation. Total duration of 20 minutes. PROCEDURE:After the risks, benefits and alternatives of the above mentioned procedure explained in detail with the patient, informed consent was obtained. Ultrasound was used to identify the radial artery. Patient was taken to the catheterization lab and prepped and draped in usual sterile fashion. 1% lidocaine was infiltrated over the right radial artery. A 6-Khmer sheath was placed in the right radial artery using modified Seldinger technique. The sheath was flushed 5 mg verapamil was administered intra-arterially. J tipped wire was advanced under fluoroscopic guidance. Once the wire tip reached aortic root 8000 units of IV heparin was given. Over the wire JL4 diagnostic catheter was advanced. Wire was removed, catheter was flushed and manipulated under fluoroscopy to selectively engaged the left coronary ostium. Left coronary angioplasty was performed in different angiographic projections. This catheter was exchanged for a JR4 diagnostic catheter over the wire. The catheter was flushed and manipulated to cross the aortic valve. LV pressures were obtained. Pullback was performed across aortic valve and catheter was manipulated to selectively engage the right coronary ostium under fluoroscopic guidance. Right coronary angiography was performed in different angiographic projections. Catheter was removed over the wire. Radial sheath was flushed. The right radial sheath was removed and a TR band was placed with excellent patent hemostasis was achieved. The patient tolerated the procedure well. Patient was transported back to the post catheterization holding area in stable condition. Angiographic images were reviewed in detail. HEMODYNAMICS: Aortic Pressure: 110/60 mmHg. LV pressure: 113/10 mmHg. LVEDP 15 mmHg. SELECTIVE CORONARY ARTERIOGRAPHY: LEFT MAIN: The left main is a large caliber vessel which bifurcates into the LAD and circumflex. There is no significant stenosis. LEFT ANTERIOR DESCENDING CORONARY ARTERY: LAD is a large caliber vessel which wraps around to the apex. There is no significant stenosis. It gives rise to medium to small size diagonal branches which appears angiographically normal. LEFT CIRCUMFLEX CORONARY ARTERY: It is nondominant vessel. Left circumflex is a moderate caliber vessel without significant stenosis. LCx continues to form a large OM branch which appears angiographically normal. RIGHT CORONARY ARTERY: Dominant vessel. The right coronary artery is a large caliber vessel which gives off a PDA and PLV branch. It appears angiographically normal. IMPRESSION: Angiographically normal coronary arteries as described above. Normal left sided filling pressures PLAN: Aggressive risk factor modification per most recent ACC/AHA guidelines. 150 cc fluids for 3 hours Discharge home in 3 hours Follow-up in the office in 1-2 weeks. Performing Physician Leonard Bradley MD
[2023-03-13] MEDS ORDERED: SODIUM CHLORIDE 0.9% 1,000 ML IV SCH (13:30)
[2023-03-13 14:24] VITALS: RESP 16
[2023-03-13 16:40] VITALS: BP 133/66; PULSE 68
== END 2023-03-13 16:40 | disposition home or self-care (01) ==
LOC: CATHCVL 11:59
PROVIDERS: ATTEND Student in an Organized Health Care Education/Training Program
DX: I49.3 Ventricular premature depolarization (principal); E66.9 Obesity, unspecified; E03.9 Hypothyroidism, unspecified; Z79.890 Hormone replacement therapy; Z79.899 Other long term (current) drug therapy; Z68.43 Body mass index [BMI] 50.0-59.9, adult
CPT/HCPCS: 99152; 93458; 76937; 80048; 85025; C1769 ×2; C1894; J2250; J2001; J3010; J1644; Q9967